=== PATIENT | male | born 1985 | race American Indian/Alaskan Native ===

== ENCOUNTER 2018-03-25 09:29 | Emergency (ER) | payer SELFPAY ==
[2018-03-25 09:41] VITALS: BP 121/74
[2018-03-25] MEDS ORDERED: IBUPROFEN PO ONE (10:53)
[2018-03-25] MEDS ORDERED: ZOVIRAX PO ONE (11:00)
--- NOTE | 2018-03-25 11:13 | Emergency Department Report ---
ED Male HPI - General Chief complaint: Skin/Abscess/Foreign Body Stated complaint: PAIN IN PRIVATE AREA Time Seen by Provider: 03/25/18 10:36 Source: patient Mode of arrival: Ambulatory Limitations: No Limitations - History of Present Illness Initial comments: This is a 32-year-old male who presents to ED complaining of painful, rash-like lesions to the perianal and scrotum region 2 days. Patient states that this retches very painful to touch and there between his buttocks and scrotum region. Patient states he also has painful masslike structure to his left inguinal cranial area. Patient describes pain as throbbing aching in nature that is c onstant. He denies fever assess tears/nausea vomiting/abdominal pain/dysuria/penile discharge or scrotal testicular pain or swelling -: Gradual Location: left inguinal region Severity: moderate Severity scale (0 -10): 8 Quality: aching, burning Consistency: constant Improves with: none Worsens with: movement rash - Related Data Sexually active: Yes Previous Rx's Medication Instructions Recorded Last Taken Type Acyclovir [Zovirax Tab] 800 mg PO TID #30 tablet 03/25/18 Unknown Rx Acyclovir [Zovirax] 1 applic TP TID #1 tube 03/25/18 Unknown Rx Ibuprofen [Motrin 800 MG tab] 800 mg PO TID #40 tablet 03/25/18 Unknown Rx Allergies Allergy/AdvReac Type Severity Reaction Status Date / Time No Known Allergies Allergy Unverified 03/25/18 09:37 ED Review of Systems ROS: Stated complaint: PAIN IN PRIVATE AREA Other details as noted in HPI Comment: All other systems reviewed and negative ED Past Medical Hx - Past Medical History Previous Medical History?: No - Surgical History Past Surgical History?: No - Social History Smoking Status: Current Every Day Smoker Substance Use Type: Marijuana - Medications Home Medications: Home Medications Medication Instructions Recorded Confirmed Last Taken Type Acyclovir [Zovirax Tab] 800 mg PO TID #30 tablet 03/25/18 Unknown Rx Acyclovir [Zovirax] 1 applic TP TID #1 tube 03/25/18 Unknown Rx Ibuprofen [Motrin 800 MG tab] 800 mg PO TID #40 tablet 03/25/18 Unknown Rx ED Physical Exam - General Limitations: No Limitations General appearance: alert, in no apparent distress - Head Head exam: Present: atraumatic, normocephalic - Eye Eye exam: Present: normal appearance - ENT ENT exam: Present: mucous membranes moist - Neck Neck exam: Present: normal inspection - Respiratory Respiratory exam: Present: normal lung sounds bilaterally. Absent: respiratory distress - Cardiovascular Cardiovascular Exam: Present: regular rate, normal rhythm. Absent: systolic murmur, diastolic murmur, rubs, gallop - GI/Abdominal GI/Abdominal exam: Present: soft, normal bowel sounds - Rectal Rectal exam: Present: deferred, tenderness, other (lesions, vesicular grouped,scattered) - exam: Present: circumcision. Absent: testicular tenderness, urethral discharge, scrotal swelling External exam: Present: erythema, lesions - Expanded Exam Expanded image: 1 - 2cm lymphadenopathy, tender to palpation - Extremities Exam Extremities exam: Present: normal inspection - Back Exam Back exam: Present: normal inspection - Neurological Exam Neurological exam: Present: alert, oriented X3 - Psychiatric Psychiatric exam: Present: normal affect, normal mood - Skin Skin exam: Present: warm, dry, intact, normal color. Absent: rash ED Course Vital Signs 03/25/18 09:37 Temperature 98.1 F Pulse Rate 98 H Respiratory 18 Rate Blood Pressure 121/74 O2 Sat by Pulse 99 Oximetry ED Medical Decision Making - Medical Decision Making 32-year-old male presents with a herpes simplex virus dermatitis is per email/perianal region. Discussed with patient at at bedtime he is not a curable virus but isn't treatable STD. Sign discussed with patient he will be treated with antiviral medication topically as well as with orally. Discuss no intercourse until symptoms resolve. Discuss vital importance to follow-up with [facility] medical clinic or family practitioner f for further STD testing Medicines are normal patient is in no acute distress. Critical care attestation.: If time is entered above; I have spent that time in minutes in the direct care of this critically ill patient, excluding procedure time. ED Disposition Clinical Impression: Herpes simplex virus (HSV) infection, Herpes genitalis in men Disposition: - TO HOME OR SELFCARE Is pt being admited?: No Does the pt Need Aspirin: No Condition: Stable Instructions: Genital Herpes Simplex (ED) Additional Instructions: Make sure to follow up with the primary care physician as discussed. Take all your medications as you've been prescribed. If you have any worsening symptoms or develop new symptoms please return to ED immediately. Prescriptions: Acyclovir [Zovirax Tab] 800 mg PO TID #30 tablet Acyclovir [Zovirax] 1 applic TP TID #1 tube Ibuprofen [Motrin 800 MG tab] 800 mg PO TID #40 tablet Referrals: PRIMARY CARE, [Primary Care Provider] - 3-5 Days [facility] [Outside] - 3-5 Days [facility] [Outside] - 3-5 Days Forms: Work/School Release Form(ED) Time of Disposition: 11:28
== END 2018-03-25 11:52 | disposition home or self-care (01) ==
LOC: ED 09:29
DX: B00.9 Herpesviral infection, unspecified (principal); F17.200 Nicotine dependence, unspecified, uncomplicated
CPT/HCPCS: 99282

== ENCOUNTER 2019-03-01 07:03 | Emergency (ER) | payer SELFPAY ==
[2019-03-01 07:41] VITALS: BP 117/69
--- NOTE | 2019-03-01 09:03 | Emergency Department Report ---
Chief Complaint: Dental/Oral Stated Complaint: TONGUE LESION Time Seen by Provider: 03/01/19 09:01 - HPI History of Present Illness: PT HAS BROKEN REAR MOLAR AND IT IS RUBBING ON HIS TONGUE CAUSING IRRITATIONS VSS NO FEVER TAKING PO NO TRISMUS NO LUDWIGS NO ABSCESS AMBULATORY AND NONTOXIC - Exam Vital Signs: Vital Signs 03/01/19 07:38 Temperature 98.5 F Pulse Rate 86 Respiratory 16 Rate Blood Pressure 117/69 O2 Sat by Pulse 99 Oximetry MSE screening note: Focused history and physical exam performed. Due to findings the following was ordered: ED Medical Decision Making - Medical Decision Making NO LIFE THREAT MSE TO DMD/PCP ED Disposition for MSE Clinical Impression: Stomatitis Disposition: MED SCREENING EXAM-LEFT Is pt being admited?: No Does the pt Need Aspirin: No Condition: Stable Additional Instructions: GO TO PHARMACY AND GET SOME DENTAL WAX PACK AROUND THAT SHARP TOOTH THEN GET SOME BLISTEX OR OTHER NUMBING OINTMENT AND PLACE ON TONGUE USE THESE FOR SEVERAL DAYS AND IT WILL GO AWAY FOLLOW UP WITH PCP GIVEN REFERRAL BELOW AND DENTIST AT [facility] AND THEY MAY BE ABLE TO EXTRACT THE TOOTH-THERE ARE OTHER DENTAL REFERRALS BELOW WELL Referrals: GALE DAILEY MD [Staff Physician] - 3-5 Days [facility] [Outside] - 3-5 Days [facility] [Outside] - 3-5 Days Time of Disposition: :02
== END 2019-03-01 09:05 | disposition left against medical advice (07) ==
LOC: ED 07:03
DX: K12.1 Other forms of stomatitis (principal)
CPT/HCPCS: 99281

== ENCOUNTER 2019-05-21 03:14 | Emergency (ER) | payer SELFPAY ==
[2019-05-21 03:21] VITALS: BP 113/66
[2019-05-21] MEDS ORDERED: ACETAMINOPHEN 500 MG TAB PO ONE (03:41)
[2019-05-21] MEDS ORDERED: IBUPROFEN 600 MG TAB PO ONE (03:41)
--- NOTE | 2019-05-21 04:06 | XRay Report ---
LEFT FOOT, 3 VIEWS INDICATION / CLINICAL INFORMATION: pain - injury. COMPARISON: None available. FINDINGS: Tiny calcaneal spur incidentally noted. No visible fracture or dislocation. IMPRESSION: No evidence for acute skeletal injury. Signer Name: Keesha Moore MD Signed: 05/21/2019 4:02 AM Workstation Name: [id number]
--- NOTE | 2019-05-21 04:07 | XRay Report ---
LEFT ANKLE, 3 VIEWS INDICATION / CLINICAL INFORMATION: Left foot pain and sweelling. COMPARISON: None available. FINDINGS: No fracture or dislocation. No soft tissue abnormality. IMPRESSION: Negative exam. Signer Name: Keesha Moore MD Signed: 05/21/2019 4:03 AM Workstation Name: [id number]
--- NOTE | 2019-05-21 04:27 | Emergency Department Report ---
ED Lower Extremity HPI - General Chief Complaint: Extremity Injury, Lower Stated Complaint: LT FOOT PAIN Source: patient Mode of arrival: Ambulatory Limitations: No Limitations - History of Present Illness Initial Comments: Patient is a 33-year-old -[place]cu[place] male with no past medical history who presents to the ED with complaint of acute onset persistent severe left foot and left ankle pain with mild swelling after a heavy plates accidentally slipped off his hand and dropped onto his left foot and ankle over 12 hours ago at work. Patient states that the pain was initially mild but subsequently the pain got worse as well as swelling. Patient states that the pain is worse with ambulation or active range of motion. Patient denies fall, dizziness, nausea, vomiting, numbness and tingling or weakness of left foot or left ankle. Low back pain or knee pain and heavy lifting. MD Complaint: ankle injury (left), foot injury (left) -: Sudden, hour(s) (12) Injury: Ankle: Left (pain and swelling), Foot: Left (pain and swelling) Type of Injury: blunt, other (heavy plate dropped onto hi sleft foot and ankle) Place: work Severity: severe Severity scale (0 -10): 7 Improves With: nothing Worsens With: weight bearing, movement, palpation Context: direct blow (heavy plates fell on his left foot and ankle) Associated Symptoms: swelling, able to partially bear weight. denies: numbness, tingling, unable to bear weight, ambulatory, other - Related Data Previous Rx's Medication Instructions Recorded Last Taken Type Acyclovir [Zovirax Tab] 800 mg PO TID #30 tablet 03/25/18 Unknown Rx Acyclovir [Zovirax] 1 applic TP TID #1 tube 03/25/18 Unknown Rx Ibuprofen [Motrin 800 MG tab] 800 mg PO TID #40 tablet 03/25/18 Unknown Rx Butalb/Acetamin/Caff 50-325-40 2 tab PO Q8HR PRN #30 tablet 10/13/18 Unknown Rx [Fioricet 50-325-40] Ondansetron [Zofran ODT TAB] 8 mg PO Q8HR #20 tab.rapdis 10/13/18 Unknown Rx Pantoprazole [Protonix] 40 mg PO QDAY #30 tablet 10/13/18 Unknown Rx Cyclobenzaprine [Flexeril] 10 mg PO Q8H PRN #21 tablet 03/07/20 Unknown Rx Naproxen 500 mg PO Q12H PRN #24 tablet 05/21/19 Unknown Rx Allergies Allergy/AdvReac Type Severity Reaction Status Date / Time No Known Allergies Allergy Unverified 03/25/18 09:37 ED Review of Systems ROS: Stated complaint: LT FOOT PAIN Other details as noted in HPI Constitutional: denies: chills, fever Eyes: denies: eye pain, eye discharge, vision change ENT: denies: ear pain, throat pain Respiratory: denies: cough, shortness of breath, wheezing Cardiovascular: denies: chest pain, palpitations Endocrine: no symptoms reported Gastrointestinal: denies: abdominal pain, nausea, diarrhea Genitourinary: denies: urgency, dysuria Musculoskeletal: joint swelling (left foot and ankle), arthralgia (left ankle and foot pain with mild swelling). denies: back pain Skin: denies: rash, lesions Neurological: denies: headache, weakness, paresthesias Psychiatric: denies: anxiety, depression Hematological/Lymphatic: denies: easy bleeding, easy bruising ED Past Medical Hx - Past Medical History Previous Medical History?: Yes Additional medical history: Cerebral aneurysm - Surgical History Past Surgical History?: No - Social History Smoking Status: Current Every Day Smoker Substance Use Type: Alcohol, Marijuana - Medications Home Medications: Home Medications Medication Instructions Recorded Confirmed Last Taken Type Acyclovir [Zovirax Tab] 800 mg PO TID #30 tablet 03/25/18 Unknown Rx Acyclovir [Zovirax] 1 applic TP TID #1 tube 03/25/18 Unknown Rx Ibuprofen [Motrin 800 MG tab] 800 mg PO TID #40 tablet 03/25/18 Unknown Rx Butalb/Acetamin/Caff 50-325-40 2 tab PO Q8HR PRN #30 tablet 10/13/18 Unknown Rx [Fioricet 50-325-40] Ondansetron [Zofran ODT TAB] 8 mg PO Q8HR #20 tab.rapdis 10/13/18 Unknown Rx Pantoprazole [Protonix] 40 mg PO QDAY #30 tablet 10/13/18 Unknown Rx Cyclobenzaprine [Flexeril] 10 mg PO Q8H PRN #21 tablet 05/21/19 Unknown Rx Naproxen 500 mg PO Q12H PRN #24 tablet 05/21/19 Unknown Rx ED Physical Exam - General Limitations: No Limitations General appearance: alert, in no apparent distress - Head Head exam: Present: atraumatic, normocephalic, normal inspection - Eye Eye exam: Present: normal appearance, PERRL, EOMI Pupils: Present: normal accommodation - ENT ENT exam: Present: normal exam, normal orophraynx, mucous membranes moist, TM's normal bilaterally, normal external ear exam - Neck Neck exam: Present: normal inspection, full ROM - Respiratory Respiratory exam: Present: normal lung sounds bilaterally. Absent: respiratory distress, wheezes, rhonchi, chest wall tenderness, accessory muscle use, decreased breath sounds - Cardiovascular Cardiovascular Exam: Present: regular rate, normal rhythm, normal heart sounds. Absent: systolic murmur, diastolic murmur, rubs, gallop - GI/Abdominal GI/Abdominal exam: Present: soft, normal bowel sounds. Absent: tenderness, guarding, hyperactive bowel sounds, organomegaly - Extremities Exam Extremities exam: Present: normal inspection, full ROM, tenderness (palpable left foot and ankle tenderness with mild swelling), normal capillary refill, joint swelling (left ankle and foot) - Back Exam Back exam: Present: normal inspection, full ROM. Absent: tenderness, CVA tenderness (R), muscle spasm, paraspinal tenderness - Neurological Exam Neurological exam: Present: alert, oriented X3, CN II-XII intact, normal gait, reflexes normal - Psychiatric Psychiatric exam: Present: normal affect, normal mood - Skin Skin exam: Present: warm, dry, intact, normal color. Absent: rash ED Course Vital Signs 05/21/19 03:19 Temperature 98.2 F Pulse Rate 97 H Respiratory 16 Rate Blood Pressure 113/66 O2 Sat by Pulse 95 Oximetry ED Lower Extremity MDM - Radiology Data Radiology results: report reviewed, image reviewed Left ankle and foot x-rays show no acute fractures or subluxations. - Medical Decision Making This is a 33-year-old male who presented to the ED with acute onset left foot and ankle pain with swelling after heavy metallic plates accidentally slipped of f his hands and dropped onto his left foot and ankle over 12 hours ago. In the ED, patient is alert and oriented x3 and is not in distress. Patient was treated for pain in the ED and left ankle and foot x-rays showed no acute fractures or subluxations. Left ankle and foot was splinted with Kalpesh wrap and postop shoe respectively. Patient was discharged home on pain medications and muscle relaxants and was advised to follow-up with his primary care physician in 5 to 7 days for reevaluation or return to the ED immediately if symptoms get worse. - Differential Diagnosis ankle injury; foot injury; sprained ankle; foot sprain Critical care attestation.: If time is entered above; I have spent that time in minutes in the direct care of this critically ill patient, excluding procedure time. ED Disposition Clinical Impression: Severe sprain of right ankle Qualifiers: Encounter type: initial encounter Qualified Code(s): S93.401A - Sprain of unspecified ligament of right ankle, initial encounter Sprain of right foot Qualifiers: Encounter type: initial encounter Qualified Code(s): S93.601A - Unspecified sprain of right foot, initial encounter Disposition: TO HOME OR SELFCARE Is pt being admited?: No Does the pt Need Aspirin: No Condition: Stable Instructions: Ankle Sprain (ED), Foot Contusion (ED), Muscle Strain (ED), Musculoskeletal Pain (ED) Additional Instructions: The x-rays of your left ankle and foot were negative with no fractures. Your injuries are soft tissue sprain. Therefore take pain medications and muscle relaxants with food and drink plenty fluids and follow-up with your primary care physician in 5 to 7 days for reevaluation. Return to the ED immediately if symptoms get worse. Prescriptions: Cyclobenzaprine [Flexeril] 10 mg PO Q8H PRN #21 tablet PRN Reason: Muscle Spasm Naproxen 500 mg PO Q12H PRN #24 tablet PRN Reason: Pain , Severe (7-10) Referrals: [facility] [Outside] - 3-5 Days Forms: Work/School Release Form(ED) Time of Disposition: 04:32 Print Language: SWEDISH
== END 2019-05-21 04:40 | disposition home or self-care (01) ==
LOC: ED 03:14
DX: S93.401A Sprain of unspecified ligament of right ankle, initial encounter (principal); S93.601A Unspecified sprain of right foot, initial encounter; F17.200 Nicotine dependence, unspecified, uncomplicated; F12.10 Cannabis abuse, uncomplicated; X58.XXXA Exposure to other specified factors, initial encounter; Y93.89 Activity, other specified; Y92.89 Other specified places as the place of occurrence of the external cause; Y99.8 Other external cause status

== ENCOUNTER 2020-07-25 12:02 | Emergency (ER) | payer OTHER ==
[2020-07-25 12:38] VITALS: BP 102/47
--- NOTE | 2020-07-25 12:57 | Event Note ---
ED Screening Note Date of service: 07/25/20 Time: 12:54 ED Screening Note: 34 y/o -Iraqi male presents to the emergency room reporting dysuria and hematuria times the last 3 to 4 days. Patient does admit to unprotected intercourse with 1 partner exclusively. Patient denies any fever chills no nausea no vomiting. He does state that he has some flank discomfort but he would not call it pain. He states that it does radiate to the front but does not feel that his pain is more like pressure. Patient states he does not have a primary care provider. He currently takes no medications on a daily basis has no known drug allergies and does not have a past medical history. This initial assessment/diagnostic orders/clinical plan/treatment(s) is/are subject to change based on patients health status, clinical progression and re- assessment by fellow clinical providers in the ED. Further treatment and workup at subsequent clinical providers discretion. Patient/guardian urged not to elope from the ED as their condition may be serious if not clinically assessed and managed. Initial orders include: Urinalysis has been sent
[2020-07-25 13:23] LABS: Bacteria,Urine 2+ /HPF (Negative); Bilirubin,Urine NEG (Negative); Blood,Urine MOD (Negative); Color,Urine Yellow (Yellow); Mucus,Urine FEW /HPF
[2020-07-25 13:26] LABS: WBC,Urine > 182.0 /HPF (0.0-6.0)
[2020-07-25 14:13] LABS: Hematocrit 38.7 % (35.5-45.6); Hemoglobin 12.6 gm/dl (11.8-15.2); Mean Corpuscular HGB Conc 33 % (32-34); Mean Corpuscular Volume 84 fl (84-94); Platelet Count 217 K/mm3 (140-440); Red Blood Count 4.61 M/mm3 (3.65-5.03); Red Cell Distribution Width 14.8 % (13.2-15.2)
[2020-07-25 14:33] LABS: BUN/Creatinine Ratio 12; Blood Urea Nitrogen 13 mg/dL (9-20); Calcium 8.9 mg/dL (8.4-10.2); Hemolysis Index 9
[2020-07-25] MEDS ORDERED: LIDOCAINE-MPF (1%) 10 MG/1 ML VIAL 5 ML INFILTRATI ONE (14:42)
--- NOTE | 2020-07-25 14:43 | Emergency Department Report ---
ED Male HPI - General Chief complaint: Urogenital-Male Stated complaint: BLOOD IN URINE Source: patient Mode of arrival: Ambulatory Limitations: No Limitations - History of Present Illness Initial comments: 34 y/o -[place] male presents to the emergency room reporting dysuria and hematuria times the last 3 to 4 days. Patient does admit to unprotected intercourse with 1 partner exclusively. Patient denies any fever chills no nausea no vomiting. He does state that he has some flank discomfort but he would not call it pain. He states that it does radiate to the front but does not feel that his pain is more like pressure. Patient states he does not have a primary care provider. He currently takes no medications on a daily basis has no known drug allergies and does not have a past medical history. MD Complaint: other (Hematuria) Onset/Timin -: days(s) Severity: mild Severity scale (0 -10): 3 Improves with: none Worsens with: urination blood in urine. denies: discharge, swelling, mass, fever - Related Data Sexually active: Yes (Unprotected 1 partner) Previous Rx's Medication Instructions Recorded Last Taken Type Acyclovir [Zovirax Tab] 800 mg PO TID #30 tablet 03/25/18 Unknown Rx Acyclovir [Zovirax] 1 applic TP TID #1 tube 03/25/18 Unknown Rx Ibuprofen [Motrin 800 MG tab] 800 mg PO TID #40 tablet 03/25/18 Unknown Rx Butalb/Acetamin/Caff 50-325-40 2 tab PO Q8HR PRN #30 tablet 10/13/18 Unknown Rx [Fioricet 50-325-40] Ondansetron [Zofran ODT TAB] 8 mg PO Q8HR #20 tab.rapdis 10/13/18 Unknown Rx Pantoprazole [Protonix] 40 mg PO QDAY #30 tablet 10/13/18 Unknown Rx Cyclobenzaprine [Flexeril] 10 mg PO Q8H PRN #21 tablet 05/21/19 Unknown Rx Naproxen 500 mg PO Q12H PRN #24 tablet 05/21/19 Unknown Rx Doxycycline Hyclate [Doxycycline 100 mg PO Q12HR 10 Days #20 tab 07/25/20 Unknown Rx Hyclate TAB] Allergies Allergy/AdvReac Type Severity Reaction Status Date / Time No Known Allergies Allergy Unverified 03/25/18 09:37 ED Review of Systems ROS: Stated complaint: BLOOD IN URINE Other details as noted in HPI Comment: All other systems reviewed and negative ED Past Medical Hx - Past Medical History Previous Medical History?: No Additional medical history: Cerebral aneurysm - Surgical History Past Surgical History?: No - Social History Smoking Status: Current Every Day Smoker Substance Use Type: Alcohol, Marijuana - Medications Home Medications: Home Medications Medication Instructions Recorded Confirmed Last Taken Type Acyclovir [Zovirax Tab] 800 mg PO TID #30 tablet 03/25/18 Unknown Rx Acyclovir [Zovirax] 1 applic TP TID #1 tube 03/25/18 Unknown Rx Ibuprofen [Motrin 800 MG tab] 800 mg PO TID #40 tablet 03/25/18 Unknown Rx Butalb/Acetamin/Caff 50-325-40 2 tab PO Q8HR PRN #30 tablet 10/13/18 Unknown Rx [Fioricet 50-325-40] Ondansetron [Zofran ODT TAB] 8 mg PO Q8HR #20 tab.rapdis 10/13/18 Unknown Rx Pantoprazole [Protonix] 40 mg PO QDAY #30 tablet 10/13/18 Unknown Rx Cyclobenzaprine [Flexeril] 10 mg PO Q8H PRN #21 tablet 05/21/19 Unknown Rx Naproxen 500 mg PO Q12H PRN #24 tablet 05/21/19 Unknown Rx Doxycycline Hyclate [Doxycycline 100 mg PO Q12HR 10 Days #20 tab 07/25/20 Unknown Rx Hyclate TAB] ED Physical Exam - General Limitations: No Limitations General appearance: alert, in no apparent distress - Head Head exam: Present: atraumatic, normocephalic - Eye Eye exam: Present: normal appearance - ENT ENT exam: Present: normal exam, normal external ear exam - Neck Neck exam: Present: normal inspection, full ROM - Respiratory Respiratory exam: Absent: accessory muscle use - Cardiovascular Cardiovascular Exam: Present: regular rate - GI/Abdominal GI/Abdominal exam: Present: soft. Absent: distended, tenderness - Extremities Exam Extremities exam: Present: normal inspection, full ROM - Back Exam Back exam: Present: normal inspection, full ROM - Neurological Exam Neurological exam: Present: alert, oriented X3, normal gait - Psychiatric Psychiatric exam: Present: normal affect, normal mood - Skin Skin exam: Present: warm, dry, intact, normal color. Absent: rash ED Course Vital Signs 07/25/20 12:36 Temperature 98.5 F Pulse Rate 75 Respiratory 17 Rate Blood Pressure 102/47 [Right] O2 Sat by Pulse 98 Oximetry ED Medical Decision Making - Lab Data Result diagrams: 07/25/20 13:48 07/25/20 13:48 Laboratory Tests 07/25/20 07/25/20 07/25/20 13:48 13:48 Unknown WBC 6.1 RBC 4.61 Hgb 12.6 Hct 38.7 MCV 84 MCH 27 L MCHC 33 RDW 14.8 Plt Count 217 Sodium 138 Potassium 4.5 Chloride 103.8 Carbon Dioxide 26 Anion Gap 13 BUN 13 Creatinine 1.1 Estimated GFR > 60 BUN/Creatinine Ratio 12 Glucose 90 Calcium 8.9 Urine Color Yellow Urine Turbidity Cloudy Urine pH 6.0 Ur Specific [place] 1.019 Urine Protein 100 mg/dl Urine Glucose (UA) Neg Urine Ketones Neg Urine Blood Mod Urine Nitrite Neg Urine Bilirubin Neg Urine Urobilinogen 2.0 Ur Leukocyte Esterase Lg Urine WBC (Auto) > 182.0 H Urine RBC (Auto) 87.0 Urine Bacteria (Auto) 2+ Urine Mucus Few - Medical Decision Making 34 y/o -[place] male presents to the emergency room reporting dysuria and hematuria times the last 3 to 4 days. Patient does admit to unprotected intercourse with 1 partner exclusively. Patient denies any fever chills no nausea no vomiting. He does state that he has some flank discomfort but he would not call it pain. He states that it does radiate to the front but does not feel that his pain is more like pressure. Patient states he does not have a primary care provider. He currently takes no medications on a daily basis has no known drug allergies and does not have a past medical history. Urinalysis shows greater than 182 WBCs and moderate amount of blood. Patient be treated for gonorrhea sent home on doxycycline and a referral to urologist. Critical care attestation.: If time is entered above; I have spent that time in minutes in the direct care of this critically ill patient, excluding procedure time. ED Disposition Clinical Impression: Hematuria, UTI (urinary tract infection), Concern about STD in male without diagnosis Disposition: DC-01 TO HOME OR SELFCARE Is pt being admited?: No Does the pt Need Aspirin: No Condition: Stable Instructions: Urinary Tract Infection, Adult, [id number], Safe Sex, Hematuria , Adult Additional Instructions: Urinalysis shows that you have a urinary tract infection or STD. I am covering you with antibiotics for both. I recommend being evaluated with a full STD evaluation and this can be done at a primary care provider or placed in Critical access hospital. I request that you refrain from intercourse until you and your partner is checked and treated. Prescriptions: Doxycycline Hyclate [Doxycycline Hyclate TAB] 100 mg PO Q12HR 10 Days #20 tab Referrals: VANESSA MASSEY MD [Staff Physician] - 3-5 Days Forms: Work/School Release Form(ED)
== END 2020-07-25 16:20 | disposition home or self-care (01) ==
LOC: ED 12:02
DX: N39.0 Urinary tract infection, site not specified (principal); R31.9 Hematuria, unspecified; Z20.2 Contact with and (suspected) exposure to infections with a predominantly sexual mode of transmission; F17.200 Nicotine dependence, unspecified, uncomplicated; Z79.899 Other long term (current) drug therapy; F12.10 Cannabis abuse, uncomplicated
CPT/HCPCS: 36415; 80048; 81001; 85027; 96372; 99283; J0696

== ENCOUNTER 2020-10-21 02:07 | Emergency (ER) | payer OTHER ==
[2020-10-21 02:36] VITALS: BP 109/74
[2020-10-21] MEDS ORDERED: ONDANSETRON 4 MG ODT TAB PO ONE ×2 (03:12→06:45)
[2020-10-21] MEDS ORDERED: LIDOCAINE (1%) 10 MG/1 ML VIAL 20 ML MDV INFILTRATI ONE (03:12)
[2020-10-21] MEDS ORDERED: IBUPROFEN 600 MG TAB PO ONE (03:12)
[2020-10-21] MEDS ORDERED: CLINDAMYCIN 300 MG CAP PO ONE (03:12)
[2020-10-21] MEDS ORDERED: SULFAMETHOXAZOLE/TRIMETHOPRIM 800/160MG DS TAB PO ONE (03:12)
[2020-10-21] MEDS ORDERED: oxyCODONE /ACETAMINOPHEN 5-325MG TAB PO ONE (03:13)
--- NOTE | 2020-10-21 04:56 | Emergency Department Report ---
ED General Adult HPI - General Chief complaint: Skin/Abscess/Foreign Body Stated complaint: BUT UNDER ARMPIT AND BUTT,POSS STD Source: patient Mode of arrival: Ambulatory Limitations: No Limitations - History of Present Illness Initial comments: Patient is a 34-year-old -[place] male with a history of cerebral aneurysm who presents to the ED with complaint of acute onset persistent severe painful swollen erythematous maculopapular rash on left axilla for the last 1 week. Patient states that he first noticed similar rashes on his buttocks about 3 weeks ago and which have since healed but that the current symptoms started 1 week ago and has been worsening. Patient states that he is unable to perform any active range of motion with the left arm because of worsening pain. Patient denies fever, chills, nausea, vomiting, dizziness, syncope, traumatic injury, numbness and tingling or weakness of left arm, change in vision, neck pain, chest pain or shortness of breath. MD Complaint: Left axilla painful swollen erythematous maculopapular rash -: Sudden, week(s) (1) Location: upper extremity (Left axilla) Radiation: non-radiation Severity scale (0 -10): 10 Quality: aching, sharp Consistency: constant Improves with: none Worsens with: movement Associated Symptoms: denies other symptoms, malaise, rash (Swollen erythematous painful maculopapular rash on left axilla). denies: confusion, chest pain, cough, diaphoresis, fever/chills, headaches, loss of appetite, nausea/vomiting, seizure, shortness of breath, syncope, weakness Treatments Prior to Arrival: none - Related Data Previous Rx's Medication Instructions Recorded Last Taken Type Acyclovir [Zovirax Tab] 800 mg PO TID #30 tablet 03/25/18 Unknown Rx Acyclovir [Zovirax] 1 applic TP TID #1 tube 03/25/18 Unknown Rx Ibuprofen [Motrin 800 MG tab] 800 mg PO TID #40 tablet 03/25/18 Unknown Rx Butalb/Acetamin/Caff 50-325-40 2 tab PO Q8HR PRN #30 tablet 10/13/18 Unknown Rx [Fioricet 50-325-40] Ondansetron [Zofran ODT TAB] 8 mg PO Q8HR #20 tab.rapdis 10/13/18 Unknown Rx Pantoprazole [Protonix] 40 mg PO QDAY #30 tablet 10/13/18 Unknown Rx Cyclobenzaprine [Flexeril] 10 mg PO Q8H PRN #21 tablet 05/21/19 Unknown Rx Naproxen 500 mg PO Q12H PRN #24 tablet 05/21/19 Unknown Rx Doxycycline Hyclate [Doxycycline 100 mg PO Q12HR 10 Days #20 tab 07/25/20 Unknown Rx Hyclate TAB] Acetaminophen/Codeine [Tylenol 1 tab PO Q6H PRN #12 tab 10/21/20 Unknown Rx /Codeine # 3 tab] Clindamycin [Clindamycin CAP] 300 mg PO Q8HR #60 capsule 10/21/20 Unknown Rx Ibuprofen [Motrin] 600 mg PO Q8H PRN #30 tablet 10/21/20 Unknown Rx Sulfamethoxazole/Trimethoprim 1 each PO Q12H #20 tablet 10/21/20 Unknown Rx [Bactrim DS TAB] Allergies Allergy/AdvReac Type Severity Reaction Status Date / Time No Known Allergies Allergy Unverified 03/25/18 09:37 ED Review of Systems ROS: Stated complaint: BUT UNDER ARMPIT AND BUTT,POSS STD Other details as noted in HPI Constitutional: denies: chills, fever Eyes: denies: eye pain, eye discharge, vision change ENT: denies: ear pain, throat pain Respiratory: denies: cough, shortness of breath, wheezing Cardiovascular: denies: chest pain, palpitations Endocrine: no symptoms reported Gastrointestinal: denies: abdominal pain, nausea, diarrhea Genitourinary: denies: urgency, dysuria Musculoskeletal: arthralgia (Left axilla pain due to erythematous maculopapular rash). denies: back pain, joint swelling Skin: rash (Painful swollen erythematous maculopapular rash on left axilla). denies: lesions Neurological: denies: headache, weakness, paresthesias Psychiatric: denies: anxiety, depression Hematological/Lymphatic: denies: easy bleeding, easy bruising ED Past Medical Hx - Past Medical History Previous Medical History?: Yes Additional medical history: Cerebral aneurysm - Surgical History Past Surgical History?: No - Social History Smoking Status: Never Smoker Substance Use Type: None - Medications Home Medications: Home Medications Medication Instructions Recorded Confirmed Last Taken Type Acyclovir [Zovirax Tab] 800 mg PO TID #30 tablet 03/25/18 Unknown Rx Acyclovir [Zovirax] 1 applic TP TID #1 tube 03/25/18 Unknown Rx Ibuprofen [Motrin 800 MG tab] 800 mg PO TID #40 tablet 03/25/18 Unknown Rx Butalb/Acetamin/Caff 50-325-40 2 tab PO Q8HR PRN #30 tablet 10/13/18 Unknown Rx [Fioricet 50-325-40] Ondansetron [Zofran ODT TAB] 8 mg PO Q8HR #20 tab.rapdis 10/13/18 Unknown Rx Pantoprazole [Protonix] 40 mg PO QDAY #30 tablet 10/13/18 Unknown Rx Cyclobenzaprine [Flexeril] 10 mg PO Q8H PRN #21 tablet 05/21/19 Unknown Rx Naproxen 500 mg PO Q12H PRN #24 tablet 05/21/19 Unknown Rx Doxycycline Hyclate [Doxycycline 100 mg PO Q12HR 10 Days #20 tab 07/25/20 Unknown Rx Hyclate TAB] Acetaminophen/Codeine [Tylenol 1 tab PO Q6H PRN #12 tab 10/21/20 Unknown Rx /Codeine # 3 tab] Clindamycin [Clindamycin CAP] 300 mg PO Q8HR #60 capsule 10/21/20 Unknown Rx Ibuprofen [Motrin] 600 mg PO Q8H PRN #30 tablet 10/21/20 Unknown Rx Sulfamethoxazole/Trimethoprim 1 each PO Q12H #20 tablet 10/21/20 Unknown Rx [Bactrim DS TAB] ED Physical Exam - General Limitations: No Limitations General appearance: alert, in no apparent distress - Head Head exam: Present: atraumatic, normocephalic, normal inspection - Eye Eye exam: Present: normal appearance, PERRL, EOMI Pupils: Present: normal accommodation - ENT ENT exam: Present: normal exam, normal orophraynx, mucous membranes moist, TM's normal bilaterally, normal external ear exam - Neck Neck exam: Present: normal inspection, full ROM - Respiratory Respiratory exam: Present: normal lung sounds bilaterally. Absent: respiratory distress, wheezes, rales, stridor, chest wall tenderness, accessory muscle use, decreased breath sounds - Cardiovascular Cardiovascular Exam: Present: regular rate, normal rhythm, normal heart sounds. Absent: systolic murmur, diastolic murmur, rubs, gallop - GI/Abdominal GI/Abdominal exam: Present: soft, normal bowel sounds. Absent: distended, tenderness, guarding, hyperactive bowel sounds, hypoactive bowel sounds, organomegaly - Extremities Exam Extremities exam: Present: normal inspection, full ROM, tenderness, normal capillary refill, other (Palpable severe left axilla tenderness due to erythematous maculopapular fluctuant rash) - Back Exam Back exam: Present: normal inspection, full ROM. Absent: tenderness, CVA tenderness (R), muscle spasm, paraspinal tenderness, vertebral tenderness - Neurological Exam Neurological exam: Present: alert, oriented X3, CN II-XII intact, normal gait, reflexes normal - Psychiatric Psychiatric exam: Present: normal affect, normal mood, anxious - Skin Skin exam: Present: warm, dry, intact, rash (Erythematous maculopapular mildly swollen fluctuant rash on left axilla), erythema ED Course Vital Signs 10/21/20 10/21/20 02:27 03:21 Temperature 99.3 F Pulse Rate 89 Respiratory 18 18 Rate Blood Pressure 109/74 O2 Sat by Pulse 100 Oximetry - I & D Left Arm Type of Procedure: Simple Site: Left axilla Blade Size: 11 I & D Procedure: betadine prep, sterile drapes applied, sterile dressing applied Progress: The area was cleaned with normal saline and Betadine solutions. Lidocaine 1% solution, a total of 5 cc was used for local anesthesia. When anesthesia was fully achieved, the wound was incised and drained and copious thick purulent discharge drained from the wound. The wound was then cleaned thoroughly with normal saline and loculations were broken with hemostat. The wounds was then packed with iodoform quarter inch gauzes. Patient tolerated the procedure well. The wound was then dressed appropriately with 4 x 4 gauzes and Tegaderm. Patient was thereafter discharged home on pain medications and antibiotics advised to return to the ED in 2 days for wound recheck and packing removal. ED Medical Decision Making - Medical Decision Making This is a 34-year-old -[place] male with a history of cerebral aneurysm who presents to the ED with complaint of acute onset persistent severe painful swollen erythematous maculopapular rash on left axilla for the last 1 week. Patient states that he first noticed similar rashes on his buttocks about 3 weeks ago and which have since healed but that the current symptoms started 1 week ago and has been worsening. Patient states that he is unable to perform any active range of motion with the left arm because of worsening pain. In the ED, patient is alert and oriented x3 and is not in any distress but is hemodynamically stable. Patient was treated for pain in the ED and also given initial oral antibiotics. The left axilla abscess was incised and drained per protocol after the area was cleaned with normal saline and Betadine, and application of loss of local anesthetic lidocaine 1% solution. Patient tolerated the procedure well. The wound was then cleaned and debrided extensively and packed with iodoform quarter inch gauze. The wound was then dressed appropriately and the patient was discharged home on pain medications and antibiotics and advised to return to the ED in 2 days for wound recheck or packing removal. Patient is advised to return to the ED immediately if symptoms get worse, otherwise follow-up with his primary care physician in 7 to 10 days for reevaluation. - Differential Diagnosis Cellulitis; cutaneous abscess; acute folliculitis; hidradenitis suppurativa Critical care attestation.: If time is entered above; I have spent that time in minutes in the direct care of this critically ill patient, excluding procedure time. ED Disposition Clinical Impression: Cellulitis of left axilla, Cutaneous abscess of left axilla, Acute folliculitis Disposition: DC-01 TO HOME OR SELFCARE Is pt being admited?: No Does the pt Need Aspirin: No Condition: Stable Instructions: Skin Abscess, [id number], Cellulitis, Adult, [id number], Incision and Drainage, Care After, Folliculitis Additional Instructions: Take medication with food, drink plenty of fluids and follow-up with your primary care physician in 7 to 10 days for reevaluation. Return to the ED immediately if symptoms get worse, otherwise return to the ED in 2 days for wound recheck and packing removal. Prescriptions: Sulfamethoxazole/Trimethoprim [Bactrim DS TAB] 1 each PO Q12H #20 tablet Clindamycin [Clindamycin CAP] 300 mg PO Q8HR #60 capsule Ibuprofen [Motrin] 600 mg PO Q8H PRN #30 tablet PRN Reason: Pain Acetaminophen/Codeine [Tylenol /Codeine # 3 tab] 1 tab PO Q6H PRN #12 tab PRN Reason: Pain , Severe (7-10) Referrals: [facility] [Provider Group] - 7-10 days Time of Disposition: 04:57 Print Language: DJIBOUTIAN
[2020-10-21] MEDS ORDERED: HYDROcodone/ACETAMINOPHEN 5-325 MG TAB PO ONE (06:45)
== END 2020-10-21 06:55 | disposition home or self-care (01) ==
LOC: ED 02:07
DX: L02.412 Cutaneous abscess of left axilla (principal); L03.112 Cellulitis of left axilla; L73.9 Follicular disorder, unspecified; Z98.890 Other specified postprocedural states
CPT/HCPCS: 99282; Q0162

== ENCOUNTER 2020-10-23 02:23 | Emergency (ER) | payer OTHER ==
[2020-10-23 03:54] VITALS: BP 105/78
== END 2020-10-23 12:03 ==
LOC: ED 02:23
DX: N63.32 Unspecified lump in axillary tail of the left breast (principal); Z53.21 Procedure and treatment not carried out due to patient leaving prior to being seen by health care provider

== ENCOUNTER 2020-10-26 06:49 | Emergency (ER) | payer OTHER ==
[2020-10-26 07:23] VITALS: BP 131/77
--- NOTE | 2020-10-26 09:08 | Emergency Department Report ---
Abscess Boil HPI - HPI Chief Complaint: Skin/Abscess/Foreign Body Stated Complaint: PAIN IS GETTING WORSE Time Seen by Provider: 10/26/20 09:04 Duration: 2 Days Location: Other (left axilla) History: Yes Pain, Yes Purulent Drainage, No Fever, No Foreign Body, No Previous History, No Insect Bite HPI: Chief complaint: "It is getting worse.". HPI: This 35-year-old male with history of cerebral aneurysm who presents with abscesses under left armpit. He is currently taking clindamycin and Bactrim. He states that drainage is worse. He has a new abscess also. No previous history of abscesses. He denies fever. Home Medications: Previous Rx's Medication Instructions Recorded Last Taken Type Acyclovir [Zovirax Tab] 800 mg PO TID #30 tablet 03/25/18 Unknown Rx Acyclovir [Zovirax] 1 applic TP TID #1 tube 03/25/18 Unknown Rx Ibuprofen [Motrin 800 MG tab] 800 mg PO TID #40 tablet 03/25/18 Unknown Rx Butalb/Acetamin/Caff 50-325-40 2 tab PO Q8HR PRN #30 tablet 10/13/18 Unknown Rx [Fioricet 50-325-40] Ondansetron [Zofran ODT TAB] 8 mg PO Q8HR #20 tab.rapdis 10/13/18 Unknown Rx Pantoprazole [Protonix] 40 mg PO QDAY #30 tablet 10/13/18 Unknown Rx Cyclobenzaprine [Flexeril] 10 mg PO Q8H PRN #21 tablet 05/21/19 Unknown Rx Naproxen 500 mg PO Q12H PRN #24 tablet 05/21/19 Unknown Rx Doxycycline Hyclate [Doxycycline 100 mg PO Q12HR 10 Days #20 tab 07/25/20 Unknown Rx Hyclate TAB] Acetaminophen/Codeine [Tylenol 1 tab PO Q6H PRN #12 tab 10/21/20 Unknown Rx /Codeine # 3 tab] Clindamycin [Clindamycin CAP] 300 mg PO Q8HR #60 capsule 10/21/20 Unknown Rx Ibuprofen [Motrin] 600 mg PO Q8H PRN #30 tablet 10/21/20 Unknown Rx Sulfamethoxazole/Trimethoprim 1 each PO Q12H #20 tablet 10/21/20 Unknown Rx [Bactrim DS TAB] Allergies/Adverse Reactions: Allergies Allergy/AdvReac Type Severity Reaction Status Date / Time No Known Allergies Allergy Unverified 03/25/18 09:37 ED Review of Systems ROS: Stated complaint: PAIN IS GETTING WORSE Other details as noted in HPI Constitutional: denies: fever, malaise Respiratory: denies: cough, shortness of breath Cardiovascular: denies: chest pain Skin: rash, lesions ED Past Medical Hx - Past Medical History Previous Medical History?: Yes Additional medical history: Cerebral aneurysm - Surgical History Past Surgical History?: No - Social History Smoking Status: Never Smoker Substance Use Type: None - Medications Home Medications: Home Medications Medication Instructions Recorded Confirmed Last Taken Type Acyclovir [Zovirax Tab] 800 mg PO TID #30 tablet 03/25/18 Unknown Rx Acyclovir [Zovirax] 1 applic TP TID #1 tube 03/25/18 Unknown Rx Ibuprofen [Motrin 800 MG tab] 800 mg PO TID #40 tablet 03/25/18 Unknown Rx Butalb/Acetamin/Caff 50-325-40 2 tab PO Q8HR PRN #30 tablet 10/13/18 Unknown Rx [Fioricet 50-325-40] Ondansetron [Zofran ODT TAB] 8 mg PO Q8HR #20 tab.rapdis 10/13/18 Unknown Rx Pantoprazole [Protonix] 40 mg PO QDAY #30 tablet 10/13/18 Unknown Rx Cyclobenzaprine [Flexeril] 10 mg PO Q8H PRN #21 tablet 05/21/19 Unknown Rx Naproxen 500 mg PO Q12H PRN #24 tablet 05/21/19 Unknown Rx Doxycycline Hyclate [Doxycycline 100 mg PO Q12HR 10 Days #20 tab 07/25/20 Unknown Rx Hyclate TAB] Acetaminophen/Codeine [Tylenol 1 tab PO Q6H PRN #12 tab 10/21/20 Unknown Rx /Codeine # 3 tab] Clindamycin [Clindamycin CAP] 300 mg PO Q8HR #60 capsule 10/21/20 Unknown Rx Ibuprofen [Motrin] 600 mg PO Q8H PRN #30 tablet 10/21/20 Unknown Rx Sulfamethoxazole/Trimethoprim 1 each PO Q12H #20 tablet 10/21/20 Unknown Rx [Bactrim DS TAB] ED Abscess Boil Physical Exam - Exam General: Vital signs noted. No distress. Alert and acting appropriately. Exam: Yes Tenderness, Yes Fluctuance, Yes Normal Neurologic Exam, Yes Normal Circulation, No Surrounding Cellulites/Erythema Exam: 3 cystic fluctuant masses 2 cm in diameter left axilla 2 of the masses are open with serous purulent drainage. ED Course Vital Signs 10/26/20 07:21 Temperature 98.8 F Pulse Rate 81 Respiratory 18 Rate Blood Pressure 131/77 O2 Sat by Pulse 100 Oximetry Critical care attestation.: If time is entered above; I have spent that time in minutes in the direct care of this critically ill patient, excluding procedure time. ED Medical Decision Making - Medical Decision Making Left axilla abscesses: Hidradenitis suppurativa likely diagnosis. I encourage patient to continue clindamycin and Bactrim. No indication for incision and d rainage. I referred patient to rn staff internal medicine physician and surgeon. ED Disposition Clinical Impression: Cutaneous abscess of left axilla Disposition: HOME / SELF CARE / HOMELESS Is pt being admited?: No Does the pt Need Aspirin: No Condition: Stable Instructions: Skin Abscess, [id number] Referrals: GALE DAILEY MD [Staff Physician] - 3-5 Days ANNIE JUSTICE MD [Staff Physician] - 3-5 Days MEHRDAD CUI MD [Staff Physician] - 3-5 Days
== END 2020-10-26 09:54 | disposition home or self-care (01) ==
LOC: ED 06:49
DX: L02.412 Cutaneous abscess of left axilla (principal); I67.1 Cerebral aneurysm, nonruptured
CPT/HCPCS: 99281

== ENCOUNTER 2020-11-05 03:39 | Emergency (ER) | payer OTHER ==
[2020-11-05 04:06] VITALS: BP 123/87
--- NOTE | 2020-11-05 05:32 | Emergency Department Report ---
ED General Adult HPI - General Chief complaint: Wound/Laceration Stated complaint: FOLLOW UP ON BUMPS UNDER ARM FOUL SMELL Source: patient Mode of arrival: Ambulatory Limitations: No Limitations - History of Present Illness Initial comments: Patient is a 34-year-old -[place] male with a history of cerebral aneurysm and who is 2 weeks s/p I&D procedure for left axilla abscess who presents to the ED for wound recheck and packing removal. Patient states that he has been taking oral antibiotics that were previously given to him when he initially presented to the ED with swollen erythematous maculopapular rash in the left axilla. Patient states that one of the iodoform packing gauzes fell off but there is one that is still stuck inside the open wound. Patient denies fever, chills, nausea, vomiting, dizziness, syncope, traumatic injury, numbness and tingling or weakness of left arm, change in vision, neck pain, chest pain or shortness of breath. MD Complaint: left axilla abscess wound, packing removal -: Sudden, week(s) (2) Location: upper extremity (left axilla) Radiation: non-radiation Severity scale (0 -10): 4 Quality: aching, sharp Consistency: constant Improves with: none Worsens with: movement Associated Symptoms: denies other symptoms, rash (Mildly erythematous rash on left axilla with open abscess wounds with packing in place). denies: confusion, chest pain, cough, diaphoresis, fever/chills, headaches, loss of appetite, malaise, nausea/vomiting, seizure, shortness of breath, syncope, other Treatments Prior to Arrival: NSAID - Related Data Previous Rx's Medication Instructions Recorded Last Taken Type Acyclovir [Zovirax Tab] 800 mg PO TID #30 tablet 03/25/18 Unknown Rx Acyclovir [Zovirax] 1 applic TP TID #1 tube 03/25/18 Unknown Rx Ibuprofen [Motrin 800 MG tab] 800 mg PO TID #40 tablet 03/25/18 Unknown Rx Butalb/Acetamin/Caff 50-325-40 2 tab PO Q8HR PRN #30 tablet 10/13/18 Unknown Rx [Fioricet 50-325-40] Ondansetron [Zofran ODT TAB] 8 mg PO Q8HR #20 tab.rapdis 10/13/18 Unknown Rx Pantoprazole [Protonix] 40 mg PO QDAY #30 tablet 10/13/18 Unknown Rx Cyclobenzaprine [Flexeril] 10 mg PO Q8H PRN #21 tablet 05/21/19 Unknown Rx Naproxen 500 mg PO Q12H PRN #24 tablet 05/21/19 Unknown Rx Doxycycline Hyclate [Doxycycline 100 mg PO Q12HR 10 Days #20 tab 07/25/20 Unknown Rx Hyclate TAB] Acetaminophen/Codeine [Tylenol 1 tab PO Q6H PRN #12 tab 10/21/20 Unknown Rx /Codeine # 3 tab] Clindamycin [Clindamycin CAP] 300 mg PO Q8HR #60 capsule 10/21/20 Unknown Rx Ibuprofen [Motrin] 600 mg PO Q8H PRN #30 tablet 10/21/20 Unknown Rx Sulfamethoxazole/Trimethoprim 1 each PO Q12H #20 tablet 10/21/20 Unknown Rx [Bactrim DS TAB] Allergies Allergy/AdvReac Type Severity Reaction Status Date / Time No Known Allergies Allergy Unverified 03/25/18 09:37 ED Review of Systems ROS: Stated complaint: FOLLOW UP ON BUMPS UNDER ARM FOUL SMELL Other details as noted in HPI Constitutional: denies: chills, fever Eyes: denies: eye pain, eye discharge, vision change ENT: denies: ear pain, throat pain Respiratory: denies: cough, shortness of breath, wheezing Cardiovascular: denies: chest pain, palpitations Endocrine: no symptoms reported Gastrointestinal: denies: abdominal pain, nausea, diarrhea Genitourinary: denies: urgency, dysuria Musculoskeletal: denies: back pain, joint swelling, arthralgia Skin: other (open abscess wound with packing on left axilla). denies: rash, lesions Neurological: denies: headache, weakness, paresthesias Psychiatric: denies: anxiety, depression Hematological/Lymphatic: denies: easy bleeding, easy bruising ED Past Medical Hx - Past Medical History Previous Medical History?: Yes Additional medical history: Cerebral aneurysm - Surgical History Past Surgical History?: No - Social History Smoking Status: Never Smoker Substance Use Type: None - Medications Home Medications: Home Medications Medication Instructions Recorded Confirmed Last Taken Type Acyclovir [Zovirax Tab] 800 mg PO TID #30 tablet 03/25/18 Unknown Rx Acyclovir [Zovirax] 1 applic TP TID #1 tube 03/25/18 Unknown Rx Ibuprofen [Motrin 800 MG tab] 800 mg PO TID #40 tablet 03/25/18 Unknown Rx Butalb/Acetamin/Caff 50-325-40 2 tab PO Q8HR PRN #30 tablet 10/13/18 Unknown Rx [Fioricet 50-325-40] Ondansetron [Zofran ODT TAB] 8 mg PO Q8HR #20 tab.rapdis 10/13/18 Unknown Rx Pantoprazole [Protonix] 40 mg PO QDAY #30 tablet 10/13/18 Unknown Rx Cyclobenzaprine [Flexeril] 10 mg PO Q8H PRN #21 tablet 05/21/19 Unknown Rx Naproxen 500 mg PO Q12H PRN #24 tablet 05/21/19 Unknown Rx Doxycycline Hyclate [Doxycycline 100 mg PO Q12HR 10 Days #20 tab 07/25/20 Unknown Rx Hyclate TAB] Acetaminophen/Codeine [Tylenol 1 tab PO Q6H PRN #12 tab 10/21/20 Unknown Rx /Codeine # 3 tab] Clindamycin [Clindamycin CAP] 300 mg PO Q8HR #60 capsule 10/21/20 Unknown Rx Ibuprofen [Motrin] 600 mg PO Q8H PRN #30 tablet 10/21/20 Unknown Rx Sulfamethoxazole/Trimethoprim 1 each PO Q12H #20 tablet 10/21/20 Unknown Rx [Bactrim DS TAB] ED Physical Exam - General Limitations: No Limitations General appearance: alert, in no apparent distress - Head Head exam: Present: atraumatic, normocephalic, normal inspection - Eye Eye exam: Present: normal appearance, PERRL, EOMI Pupils: Present: normal accommodation - ENT ENT exam: Present: normal exam, normal orophraynx, mucous membranes moist, TM's normal bilaterally, normal external ear exam - Neck Neck exam: Present: normal inspection, full ROM - Respiratory Respiratory exam: Present: normal lung sounds bilaterally. Absent: respiratory distress, wheezes, rales, rhonchi, chest wall tenderness, accessory muscle use, decreased breath sounds - Cardiovascular Cardiovascular Exam: Present: regular rate, normal rhythm, normal heart sounds. Absent: systolic murmur, diastolic murmur, rubs, gallop - GI/Abdominal GI/Abdominal exam: Present: soft, normal bowel sounds. Absent: tenderness, guarding, hyperactive bowel sounds, hypoactive bowel sounds, organomegaly, mass - Extremities Exam Extremities exam: Present: normal inspection, full ROM, normal capillary refill. Absent: tenderness, pedal edema, joint swelling, calf tenderness - Back Exam Back exam: Present: normal inspection, full ROM. Absent: tenderness, CVA tenderness (R), CVA tenderness (L), muscle spasm, paraspinal tenderness, vertebral tenderness - Neurological Exam Neurological exam: Present: alert, oriented X3, CN II-XII intact, normal gait, reflexes normal - Psychiatric Psychiatric exam: Present: normal affect, normal mood - Skin Skin exam: Present: warm, dry, intact, normal color, rash (Painful open abscess wound with packing in place) ED Course Vital Signs 11/05/20 04:04 Temperature 98.8 F Pulse Rate 89 Respiratory 18 Rate Blood Pressure 123/87 O2 Sat by Pulse 100 Oximetry ED Medical Decision Making - Medical Decision Making This is a 34-year-old -[place] male with a history of cerebral aneurysm and who is 2 weeks s/p I&D procedure for left axilla abscess who presents to the ED for wound recheck and packing removal. Patient states that he has been taking oral antibiotics that were previously given to him when he initially presented to the ED with swollen erythematous maculopapular rash in the left axilla. Patient states that one of the iodoform packing gauzes fell off but there is one that is still stuck inside the open wound. In the ED, patient is alert and oriented x3 and is not in any distress. The wound was evaluated and the remaining iodoform gauze was removed successfully. Patient tolerated the procedure well. The wound was then dressed appropriately and the patient was discharged home and advised to continue taking the previously prescribed antibiotics and pain medications and to follow-up with his primary care physician in 7 to 10 days for reevaluation. Patient was otherwise advised return to the ED immediately if symptoms get worse. - Differential Diagnosis open wound; cellulitis; wound check Critical care attestation.: If time is entered above; I have spent that time in minutes in the direct care of this critically ill patient, excluding procedure time. ED Disposition Clinical Impression: Cellulitis of left axilla, Abscess packing removal Disposition: HOME / SELF CARE / HOMELESS Is pt being admited?: No Does the pt Need Aspirin: No Condition: Stable Instructions: Cellulitis, Adult, [id number], How to Change Your Wound Dressing, [id number] Additional Instructions: Continue taking the previously prescribed antibiotics until completion, take pain medication as needed with food, drink plenty of fluids and follow-up with your primary care physician in 7 to 10 days for reevaluation. Return to the ED immediately if symptoms get worse. Referrals: [facility] [Provider Group] - 7-10 days Time of Disposition: 05:15 Print Language: ISRAELI
== END 2020-11-05 05:51 | disposition home or self-care (01) ==
LOC: ED 03:39
DX: L03.112 Cellulitis of left axilla (principal); Z79.899 Other long term (current) drug therapy
CPT/HCPCS: 99282

== ENCOUNTER 2020-12-05 15:11 | Emergency (ER) | payer OTHER ==
[2020-12-05 15:44] VITALS: BP 116/72
--- NOTE | 2020-12-05 18:14 | Emergency Department Report ---
- General Chief complaint: Extremity Injury, Lower Stated complaint: KNEE SWELLING Time Seen by Provider: 12/05/20 17:19 Source: patient Mode of arrival: Ambulatory Limitations: No Limitations - History of Present Illness Initial comments: Patient is a 35-year-old male presents emergency room with complaints of an infection to the right knee. He states approximately 4 days ago he noticed a small pimple-like skin lesion just below the right knee. He states that he popped it with his hands and had a very small amount of drainage. He states that over the next couple of days he began noticing swelling, redness, increased pain. He states he has been ambulatory. He denies any numbness or weakness. He denies being bit by anything that he is aware of. He denies any fall or injury or any trauma. No past medical history. No allergies to medications. - Related Data Previous Rx's Medication Instructions Recorded Last Taken Type Acyclovir [Zovirax Tab] 800 mg PO TID #30 tablet 03/25/18 Unknown Rx Acyclovir [Zovirax] 1 applic TP TID #1 tube 03/25/18 Unknown Rx Ibuprofen [Motrin 800 MG tab] 800 mg PO TID #40 tablet 03/25/18 Unknown Rx Butalb/Acetamin/Caff 50-325-40 2 tab PO Q8HR PRN #30 tablet 10/13/18 Unknown Rx [Fioricet 50-325-40] Ondansetron [Zofran ODT TAB] 8 mg PO Q8HR #20 tab.rapdis 10/13/18 Unknown Rx Pantoprazole [Protonix] 40 mg PO QDAY #30 tablet 10/13/18 Unknown Rx Cyclobenzaprine [Flexeril] 10 mg PO Q8H PRN #21 tablet 05/21/19 Unknown Rx Naproxen 500 mg PO Q12H PRN #24 tablet 05/21/19 Unknown Rx Doxycycline Hyclate [Doxycycline 100 mg PO Q12HR 10 Days #20 tab 07/25/20 Unknown Rx Hyclate TAB] Acetaminophen/Codeine [Tylenol 1 tab PO Q6H PRN #12 tab 10/21/20 Unknown Rx /Codeine # 3 tab] Clindamycin [Clindamycin CAP] 300 mg PO Q8HR #60 capsule 10/21/20 Unknown Rx Ibuprofen [Motrin] 600 mg PO Q8H PRN #30 tablet 10/21/20 Unknown Rx Sulfamethoxazole/Trimethoprim 1 each PO Q12H #20 tablet 10/21/20 Unknown Rx [Bactrim DS TAB] Clindamycin [Clindamycin CAP] 450 mg PO TID 7 Days #63 capsule 12/05/20 Unknown Rx HYDROcodone/APAP 5-325 [[place] 1 each PO Q6HR PRN #12 tablet 12/05/20 Unknown Rx 5/325] Naproxen 375 mg PO BID PRN #14 tablet 12/05/20 Unknown Rx Allergies Allergy/AdvReac Type Severity Reaction Status Date / Time No Known Allergies Allergy Unverified 12/05/20 15:45 Abscess Boil HPI - HPI Chief Complaint: Extremity Injury, Lower Stated Complaint: KNEE SWELLING Time Seen by Provider: 12/05/20 17:19 Home Medications: Previous Rx's Medication Instructions Recorded Last Taken Type Acyclovir [Zovirax Tab] 800 mg PO TID #30 tablet 03/25/18 Unknown Rx Acyclovir [Zovirax] 1 applic TP TID #1 tube 03/25/18 Unknown Rx Ibuprofen [Motrin 800 MG tab] 800 mg PO TID #40 tablet 03/25/18 Unknown Rx Butalb/Acetamin/Caff 50-325-40 2 tab PO Q8HR PRN #30 tablet 10/13/18 Unknown Rx [Fioricet 50-325-40] Ondansetron [Zofran ODT TAB] 8 mg PO Q8HR #20 tab.rapdis 10/13/18 Unknown Rx Pantoprazole [Protonix] 40 mg PO QDAY #30 tablet 10/13/18 Unknown Rx Cyclobenzaprine [Flexeril] 10 mg PO Q8H PRN #21 tablet 05/21/19 Unknown Rx Naproxen 500 mg PO Q12H PRN #24 tablet 05/21/19 Unknown Rx Doxycycline Hyclate [Doxycycline 100 mg PO Q12HR 10 Days #20 tab 07/25/20 Unknown Rx Hyclate TAB] Acetaminophen/Codeine [Tylenol 1 tab PO Q6H PRN #12 tab 10/21/20 Unknown Rx /Codeine # 3 tab] Clindamycin [Clindamycin CAP] 300 mg PO Q8HR #60 capsule 10/21/20 Unknown Rx Ibuprofen [Motrin] 600 mg PO Q8H PRN #30 tablet 10/21/20 Unknown Rx Sulfamethoxazole/Trimethoprim 1 each PO Q12H #20 tablet 10/21/20 Unknown Rx [Bactrim DS TAB] Clindamycin [Clindamycin CAP] 450 mg PO TID 7 Days #63 capsule 12/05/20 Unknown Rx HYDROcodone/APAP 5-325 [[place] 1 each PO Q6HR PRN #12 tablet 12/05/20 Unknown Rx 5/325] Naproxen 375 mg PO BID PRN #14 tablet 12/05/20 Unknown Rx Allergies/Adverse Reactions: Allergies Allergy/AdvReac Type Severity Reaction Status Date / Time No Known Allergies Allergy Unverified 12/05/20 15:45 ED Review of Systems ROS: Stated complaint: KNEE SWELLING Other details as noted in HPI Comment: All other systems reviewed and negative ED Past Medical Hx - Past Medical History Additional medical history: Cerebral aneurysm - Social History Smoking Status: Never Smoker Substance Use Type: None - Medications Home Medications: Home Medications Medication Instructions Recorded Confirmed Last Taken Type Acyclovir [Zovirax Tab] 800 mg PO TID #30 tablet 03/25/18 Unknown Rx Acyclovir [Zovirax] 1 applic TP TID #1 tube 03/25/18 Unknown Rx Ibuprofen [Motrin 800 MG tab] 800 mg PO TID #40 tablet 03/25/18 Unknown Rx Butalb/Acetamin/Caff 50-325-40 2 tab PO Q8HR PRN #30 tablet 10/13/18 Unknown Rx [Fioricet 50-325-40] Ondansetron [Zofran ODT TAB] 8 mg PO Q8HR #20 tab.rapdis 10/13/18 Unknown Rx Pantoprazole [Protonix] 40 mg PO QDAY #30 tablet 10/13/18 Unknown Rx Cyclobenzaprine [Flexeril] 10 mg PO Q8H PRN #21 tablet 05/21/19 Unknown Rx Naproxen 500 mg PO Q12H PRN #24 tablet 05/21/19 Unknown Rx Doxycycline Hyclate [Doxycycline 100 mg PO Q12HR 10 Days #20 tab 07/25/20 Unknown Rx Hyclate TAB] Acetaminophen/Codeine [Tylenol 1 tab PO Q6H PRN #12 tab 10/21/20 Unknown Rx /Codeine # 3 tab] Clindamycin [Clindamycin CAP] 300 mg PO Q8HR #60 capsule 10/21/20 Unknown Rx Ibuprofen [Motrin] 600 mg PO Q8H PRN #30 tablet 10/21/20 Unknown Rx Sulfamethoxazole/Trimethoprim 1 each PO Q12H #20 tablet 10/21/20 Unknown Rx [Bactrim DS TAB] Clindamycin [Clindamycin CAP] 450 mg PO TID 7 Days #63 capsule 12/05/20 Unknown Rx HYDROcodone/APAP 5-325 [[place] 1 each PO Q6HR PRN #12 tablet 12/05/20 Unknown Rx 5/325] Naproxen 375 mg PO BID PRN #14 tablet 12/05/20 Unknown Rx ED Physical Exam - General Limitations: No Limitations General appearance: alert, in no apparent distress - Head Head exam: Present: atraumatic, normocephalic - Eye Eye exam: Present: normal appearance - ENT ENT exam: Present: mucous membranes moist - Neurological Exam Neurological exam: Present: alert, oriented X3 - Psychiatric Psychiatric exam: Present: normal affect, normal mood - Skin Skin exam: Present: warm, dry, other (2 cm area of induration present just inferior to the right knee, there is a 4 cm area of surrounding erythema, no ttp of the right knee, FROM of the RLE, neurovascularly intact, no crepitus, compartments are soft, no necrosis, no active drainage) ED Course Vital Signs 12/05/20 15:26 Temperature 98.2 F Pulse Rate 94 H Respiratory 18 Rate Blood Pressure 116/72 O2 Sat by Pulse 100 Oximetry ED Medical Decision Making - Medical Decision Making Patient is a 35-year-old male presents emergency room with complaints of an infection to the right knee. He states approximately 4 days ago he noticed a small pimple-like skin lesion just below the right knee. He states that he popped it with his hands and had a very small amount of drainage. He states that over the next couple of days he began noticing swelling, redness, increased pain. He states he has been ambulatory. He denies any numbness or weakness. He denies being bit by anything that he is aware of. He denies any fall or injury or any trauma. No past medical history. No allergies to medications. Vitals are normal. On exam: 2 cm area of induration present just inferior to the right knee, there is a 4 cm area of surrounding erythema, no ttp of the right knee, FROM of the RLE, neurovascularly intact, no crepitus, compartments are soft, no necrosis, no active drainage. Examination appears consistent with cellulitis, no drainable abscess at this time. There is no joint involvement at this time, no signs of septic joint. This appears consistent with a skin infection. Patient given prescription for medication. Discussed the importance of outpatient follow-up within the next 3 days. Discussed very strict return precautions in detail with patient. advised pt Please take medication as prescribed. Please do warm compresses 3 times a day. Follow-up with your primary care doctor in the next 3 days for reexamination. Return to emergency room immediately for any new or worsening symptoms including but not limited to worsening redness, worsening swelling, fever, vomiting, increased drainage, etc. Critical care attestation.: If time is entered above; I have spent that time in minutes in the direct care of this critically ill patient, excluding procedure time. ED Disposition Clinical Impression: Cellulitis Qualifiers: Site of cellulitis: extremity Site of cellulitis of extremity: lower extremity Laterality: right Qualified Code(s): L03.115 - Cellulitis of right lower limb Disposition: HOME / SELF CARE / HOMELESS Is pt being admited?: No Does the pt Need Aspirin: No Condition: Stable Instructions: Cellulitis, Adult Additional Instructions: Please take medication as prescribed. Please do warm compresses 3 times a day. Follow-up with your primary care doctor in the next 3 days for reexamination. Return to emergency room immediately for any new or worsening symptoms including but not limited to worsening redness, worsening swelling, fever, vomiting, increased drainage, etc. Prescriptions: Clindamycin [Clindamycin CAP] 450 mg PO TID 7 Days #63 capsule Naproxen 375 mg PO BID PRN #14 tablet PRN Reason: moderate pain HYDROcodone/APAP 5-325 [[place] 5/325] 1 each PO Q6HR PRN #12 tablet PRN Reason: Pain , Severe (7-10) Referrals: GALE DAILEY MD [Staff Physician] - 2-3 Days [facility] [Provider Group] - 2-3 Days AMERICA GANDHI MD [Staff Physician] - 2-3 Days Time of Disposition: 18:11 Print Language: YORUBA
== END 2020-12-05 18:57 | disposition home or self-care (01) ==
LOC: ED 15:11
DX: L03.115 Cellulitis of right lower limb (principal); I67.1 Cerebral aneurysm, nonruptured
CPT/HCPCS: 99282

== ENCOUNTER 2021-01-15 13:18 | Emergency (ER) | payer OTHER ==
[2021-01-15] MEDS ORDERED: ACETAMINOPHEN W/CODEINE 300-30 MG TAB PO ONE (14:46)
[2021-01-15] MEDS ORDERED: ACETAMINOPHEN 325 MG/10.15 ML ORAL LIQD UNIT DOSE PO ONE (14:46)
[2021-01-15] MEDS ORDERED: ONDANSETRON 4 MG ODT TAB PO ONE (14:46)
--- NOTE | 2021-01-15 15:27 | XRay Report ---
CHEST 2 VIEWS INDICATION / CLINICAL INFORMATION: cough, fever, v/d. COMPARISON: None available. FINDINGS: SUPPORT DEVICES: None. HEART / MEDIASTINUM: No significant abnormality. LUNGS / PLEURA: No significant pulmonary or pleural abnormality. No pneumothorax. ADDITIONAL FINDINGS: No significant additional findings. IMPRESSION: 1. No acute findings. Signer Name: Josie Looney MD Signed: 01/15/2021 3:22 PM Workstation Name: [id number]
[2021-01-15 15:35] LABS: Hematocrit 37.2 % (35.5-45.6); Mean Corpuscular HGB Conc 32 % (32-34); Mean Corpuscular Volume 80 fl (84-94); Platelet Count 199 K/mm3 (140-440); Red Blood Count 4.64 M/mm3 (3.65-5.03); Red Cell Distribution Width 17.4 % (13.2-15.2)
[2021-01-15 15:49] LABS: Alanine Aminotransferase 36 units/L (7-56); BUN/Creatinine Ratio 12; Blood Urea Nitrogen 13 mg/dL (9-20); Calcium 8.7 mg/dL (8.4-10.2); Hemolysis Index 6
[2021-01-15 16:14] LABS: Total Cells Counted 100
[2021-01-15 16:15] LABS: Hypochromasia 1+; Platelet Estimate Consistent w Auto
--- NOTE | 2021-01-15 16:47 | Emergency Department Report ---
- General Chief Complaint: Upper Respiratory Infection Stated Complaint: COVID? FEVER VOMITING,BODY ACHES CHILLS Time Seen by Provider: 01/15/21 14:32 Source: patient Mode of arrival: Ambulatory Limitations: No Limitations - History of Present Illness Initial Comments: Patient is a 35-year-old male presents emergency room complaints of possible COVID-19 that began 3 days ago. He states he was looking up his symptoms and he reports that he has all associated symptoms. He states he has been having nausea, vomiting, diarrhea, mild dry cough, chills, body aches, fever. He faustino es any shortness of breath, chest pain, urinary symptoms, hematochezia, melena, hematemesis. He denies any past medical history. No allergies to medications. He has not been vaccinated for COVID-19. He denies any known sick contacts or recent travel. - Related Data Previous Rx's Medication Instructions Recorded Last Taken Type Acyclovir [Zovirax Tab] 800 mg PO TID #30 tablet 03/25/18 Unknown Rx Acyclovir [Zovirax] 1 applic TP TID #1 tube 03/25/18 Unknown Rx Ibuprofen [Motrin 800 MG tab] 800 mg PO TID #40 tablet 03/25/18 Unknown Rx Butalb/Acetamin/Caff 50-325-40 2 tab PO Q8HR PRN #30 tablet 10/13/18 Unknown Rx [Fioricet 50-325-40] Ondansetron [Zofran ODT TAB] 8 mg PO Q8HR #20 tab.rapdis 10/13/18 Unknown Rx Pantoprazole [Protonix] 40 mg PO QDAY #30 tablet 10/13/18 Unknown Rx Cyclobenzaprine [Flexeril] 10 mg PO Q8H PRN #21 tablet 05/21/19 Unknown Rx Naproxen 500 mg PO Q12H PRN #24 tablet 05/21/19 Unknown Rx Doxycycline Hyclate [Doxycycline 100 mg PO Q12HR 10 Days #20 tab 07/25/20 Unknown Rx Hyclate TAB] Acetaminophen/Codeine [Tylenol 1 tab PO Q6H PRN #12 tab 10/21/20 Unknown Rx /Codeine # 3 tab] Clindamycin [Clindamycin CAP] 300 mg PO Q8HR #60 capsule 10/21/20 Unknown Rx Ibuprofen [Motrin] 600 mg PO Q8H PRN #30 tablet 10/21/20 Unknown Rx Sulfamethoxazole/Trimethoprim 1 each PO Q12H #20 tablet 10/21/20 Unknown Rx [Bactrim DS TAB] Clindamycin [Clindamycin CAP] 450 mg PO TID 7 Days #63 capsule 12/05/20 Unknown Rx HYDROcodone/APAP 5-325 [[place] 1 each PO Q6HR PRN #12 tablet 12/05/20 Unknown Rx 5/325] Naproxen 375 mg PO BID PRN #14 tablet 12/05/20 Unknown Rx Acetaminophen [Tylenol] 650 mg PO Q8HR PRN #20 capsule 01/15/21 Unknown Rx Benzonatate [Tessalon Perles] 100 mg PO Q8HR PRN #12 capsule 01/15/21 Unknown Rx Hyoscyamine Subl [Levsin Sl 0.125 0.125 mg SL Q6HR PRN #8 tab 01/15/21 Unknown Rx TAB] Ondansetron [Zofran Odt] 4 mg PO Q8HR PRN #8 tab.rapdis 01/15/21 Unknown Rx guaiFENesin ER [Mucinex ER] 600 mg PO Q12H 7 Days #14 tablet.er 01/15/21 Unknown Rx Allergies Allergy/AdvReac Type Severity Reaction Status Date / Time No Known Allergies Allergy Verified 01/15/21 13:58 ED Review of Systems ROS: Stated complaint: COVID? FEVER VOMITING,BODY ACHES CHILLS Other details as noted in HPI Comment: All other systems reviewed and negative ED Past Medical Hx - Past Medical History Additional medical history: Cerebral aneurysm - Social History Smoking Status: Never Smoker Substance Use Type: None - Medications Home Medications: Home Medications Medication Instructions Recorded Confirmed Last Taken Type Acyclovir [Zovirax Tab] 800 mg PO TID #30 tablet 03/25/18 Unknown Rx Acyclovir [Zovirax] 1 applic TP TID #1 tube 03/25/18 Unknown Rx Ibuprofen [Motrin 800 MG tab] 800 mg PO TID #40 tablet 03/25/18 Unknown Rx Butalb/Acetamin/Caff 50-325-40 2 tab PO Q8HR PRN #30 tablet 10/13/18 Unknown Rx [Fioricet 50-325-40] Ondansetron [Zofran ODT TAB] 8 mg PO Q8HR #20 tab.rapdis 10/13/18 Unknown Rx Pantoprazole [Protonix] 40 mg PO QDAY #30 tablet 10/13/18 Unknown Rx Cyclobenzaprine [Flexeril] 10 mg PO Q8H PRN #21 tablet 05/21/19 Unknown Rx Naproxen 500 mg PO Q12H PRN #24 tablet 05/21/19 Unknown Rx Doxycycline Hyclate [Doxycycline 100 mg PO Q12HR 10 Days #20 tab 07/25/20 Unknown Rx Hyclate TAB] Acetaminophen/Codeine [Tylenol 1 tab PO Q6H PRN #12 tab 10/21/20 Unknown Rx /Codeine # 3 tab] Clindamycin [Clindamycin CAP] 300 mg PO Q8HR #60 capsule 10/21/20 Unknown Rx Ibuprofen [Motrin] 600 mg PO Q8H PRN #30 tablet 10/21/20 Unknown Rx Sulfamethoxazole/Trimethoprim 1 each PO Q12H #20 tablet 10/21/20 Unknown Rx [Bactrim DS TAB] Clindamycin [Clindamycin CAP] 450 mg PO TID 7 Days #63 capsule 12/05/20 Unknown Rx HYDROcodone/APAP 5-325 [[place] 1 each PO Q6HR PRN #12 tablet 12/05/20 Unknown Rx 5/325] Naproxen 375 mg PO BID PRN #14 tablet 12/05/20 Unknown Rx Acetaminophen [Tylenol] 650 mg PO Q8HR PRN #20 capsule 01/15/21 Unknown Rx Benzonatate [Tessalon Perles] 100 mg PO Q8HR PRN #12 capsule 01/15/21 Unknown Rx Hyoscyamine Subl [Levsin Sl 0.125 0.125 mg SL Q6HR PRN #8 tab 01/15/21 Unknown Rx TAB] Ondansetron [Zofran Odt] 4 mg PO Q8HR PRN #8 tab.rapdis 01/15/21 Unknown Rx guaiFENesin ER [Mucinex ER] 600 mg PO Q12H 7 Days #14 tablet.er 01/15/21 Unknown Rx ED Physical Exam - General Limitations: No Limitations General appearance: alert, in no apparent distress - Head Head exam: Present: atraumatic, normocephalic - Eye Eye exam: Present: normal appearance - ENT ENT exam: Present: mucous membranes moist - Respiratory Respiratory exam: Present: normal lung sounds bilaterally. Absent: respiratory distress, wheezes, rales, rhonchi, stridor, chest wall tenderness, accessory muscle use, decreased breath sounds, prolonged expiratory - Cardiovascular Cardiovascular Exam: Present: regular rate, normal rhythm, normal heart sounds. Absent: systolic murmur, diastolic murmur, rubs, gallop - GI/Abdominal GI/Abdominal exam: Present: soft. Absent: distended, tenderness, guarding, rebound, rigid - Neurological Exam Neurological exam: Present: alert, oriented X3 - Psychiatric Psychiatric exam: Present: normal affect, normal mood - Skin Skin exam: Present: warm, dry, intact ED Course Vital Signs 01/15/21 01/15/21 13:56 17:45 Temperature 100.9 F H 99.5 F Pulse Rate 100 H 73 Respiratory 14 14 Rate Blood Pressure 100/61 111/63 [Left] O2 Sat by Pulse 100 99 Oximetry ED Medical Decision Making - Lab Data Result diagrams: 01/15/21 15:14 01/15/21 15:14 Lab Results 01/15/21 01/15/21 Range/Units 15:14 15:14 WBC 10.8 (4.5-11.0) K/mm3 RBC 4.64 (3.65-5.03) M/mm3 Hgb 12.0 (11.8-15.2) gm/dl Hct 37.2 (35.5-45.6) % MCV 80 L (84-94) fl MCH 26 L (28-32) pg MCHC 32 (32-34) % RDW 17.4 H (13.2-15.2) % Plt Count 199 (140-440) K/mm3 Lymph % (Auto) Host Coordinator Lymph # (Auto) Host Coordinator Add Manual Diff Complete Total Counted 100 Seg Neutrophils % Host Coordinator Seg Neuts % (Manual) 31.0 L (40.0-70.0) % Lymphocytes % (Manual) 61.0 H (13.4-35.0) % Monocytes % (Manual) 8.0 H (0.0-7.3) % Nucleated RBC % Not Reportable Seg Neutrophils # Man 3.3 (1.8-7.7) K/mm3 Band Neutrophils # 0.0 K/mm3 Lymphocytes # (Manual) 6.6 H (1.2-5.4) K/mm3 Abs React Lymphs (Man) 0.0 K/mm3 Monocytes # (Manual) 0.9 H (0.0-0.8) K/mm3 Eosinophils # (Manual) 0.0 (0.0-0.4) K/mm3 Basophils # (Manual) 0.0 (0.0-0.1) K/mm3 Metamyelocytes # 0.0 K/mm3 Myelocytes # 0.0 K/mm3 Promyelocytes # 0.0 K/mm3 Blast Cells # 0.0 K/mm3 WBC Morphology Not Reportable Hypersegmented Neuts Not Reportable Hyposegmented Neuts Not Reportable Hypogranular Neuts Not Reportable Smudge Cells Not Reportable Toxic Granulation Not Reportable Toxic Vacuolation Not Reportable Dohle Bodies Not Reportable Pelger-Huet Anomaly Not Reportable Carla Rods Not Reportable Platelet Estimate Consistent w auto Clumped Platelets Not Reportable Plt Clumps, EDTA Not Reportable Large Platelets Not Reportable Giant Platelets Not Reportable Platelet Satelliting Not Reportable Plt Morphology Comment Not Reportable RBC Morphology Not Reportable Dimorphic RBCs Not Reportable Polychromasia Not Reportable Hypochromasia 1+ Poikilocytosis Not Reportable Anisocytosis Not Reportable Microcytosis Not Reportable Macrocytosis Not Reportable Spherocytes Not Reportable Pappenheimer Bodies Not Reportable Sickle Cells Not Reportable Target Cells Not Reportable Tear Drop Cells Not Reportable Ovalocytes Not Reportable Helmet Cells Not Reportable [place] Bodies Not Reportable Badger Rings Not Reportable Christopher Cells Not Reportable Bite Cells Not Reportable Crenated Cell Not Reportable Elliptocytes Not Reportable Acanthocytes (Spur) Not Reportable Rouleaux Not Reportable Hemoglobin C Crystals Not Reportable Schistocytes Not Reportable Malaria parasites Not Reportable Eleuterio Bodies Not Reportable Hem Pathologist Commnt No Sodium 132 L (137-145) mmol/L Potassium 4.7 (3.6-5.0) mmol/L Chloride 97.3 L (98-107) mmol/L Carbon Dioxide 23 (22-30) mmol/L Anion Gap 16 mmol/L BUN 13 (9-20) mg/dL Creatinine 1.1 (0.8-1.3) mg/dL Estimated GFR > 60 ml/min BUN/Creatinine Ratio 12 % Glucose 86 (75-100) mg/dL Calcium 8.7 (8.4-10.2) mg/dL Total Bilirubin 0.30 (0.1-1.2) mg/dL AST 45 H (5-40) units/L ALT 36 (7-56) units/L Alkaline Phosphatase 76 (35-129) units/L Total Protein 8.4 H (6.3-8.2) g/dL Albumin 4.0 (3.9-5) g/dL Albumin/Globulin Ratio 0.9 % Lipase 7 L (13-60) units/L Vital Signs 01/15/21 01/15/21 13:56 17:45 Temperature 100.9 F H 99.5 F Pulse Rate 100 H 73 Respiratory 14 14 Rate Blood Pressure 100/61 111/63 [Left] O2 Sat by Pulse 100 99 Oximetry - Radiology Data Radiology results: report reviewed Ordering Physician: DIDI RICHARDS Date of Service: 01/15/21 Procedure(s): XR chest routine 2V Accession Number(s): [id number] cc: DIDI RICHARDS Fluoro Time In Minutes: CHEST 2 VIEWS INDICATION / CLINICAL INFORMATION: cough, fever, v/d. COMPARISON: None available. FINDINGS: SUPPORT DEVICES: None. HEART / MEDIASTINUM: No significant abnormality. LUNGS / PLEURA: No significant pulmonary or pleural abnormality. No pneumothorax. ADDITIONAL FINDINGS: No significant additional findings. IMPRESSION: 1. No acute findings. Signer Name: Josie Looney MD Signed: 01/15/2021 3:22 PM Workstation Name: [id number] Transcribed By: DT Dictated By: Bayron Looeny MD Electronically Authenticated By: Bayron Looney MD Signed Date/Time: 01/15/211521 DD/ 20 TD/TT: - Medical Decision Making Patient is a 35-year-old male presents emergency room complaints of possible COV ID-19 that began 3 days ago. He states he was looking up his symptoms and he reports that he has all associated symptoms. He states he has been having nausea, vomiting, diarrhea, mild dry cough, chills, body aches, fever. He denies any shortness of breath, chest pain, urinary symptoms, hematochezia, melena, hematemesis. He denies any past medical history. No allergies to medications. He has not been vaccinated for COVID-19. He denies any known sick contacts or recent travel. Initial vitals with fever and tachycardia which improved upon repeat. No hypoxia. Sounds are clear bilaterally, no wheezing, no rales, no rhonchi. Labs with mild dehydration, encouraged oral intake. Chest x-ray 1. No acute findings. Patient given p.o. medications while in the emergency department with improvement of his symptoms and he was able to tolerate p.o. intake without any difficulty and had no episodes of vomiting while in the ED. Symptoms likely related to URI. Discussed the possibility of COVID-19 with patient, discussed return precautions, discussed self quarantine, discussed outpatient testing. Patient has no hypoxia or signs of Covid pneumonia on his x-ray. Patient given prescription for medication for symptomatic relief. Advised Please take medication as prescribed. Increase y our fluid intake. Follow-up with a primary care doctor. Return to emergency room immediately for any new or worsening symptoms. Recommend outpatient COVID- 19 testing and if positive will need to self quarantine for 10 days from onset of symptoms. Critical care attestation.: If time is entered above; I have spent that time in minutes in the direct care of this critically ill patient, excluding procedure time. ED Disposition Clinical Impression: Upper respiratory infection Qualifiers: URI type: unspecified URI Qualified Code(s): J06.9 - Acute upper respiratory infection, unspecified Disposition: 01 HOME / SELF CARE / HOMELESS Is pt being admited?: No Does the pt Need Aspirin: No Condition: Stable Instructions: Viral Respiratory Infection Additional Instructions: Please take medication as prescribed. Increase your fluid intake. Follow-up with a primary care doctor. Return to emergency room immediately for any new or worsening symptoms. Recommend outpatient COVID-19 testing and if positive will need to self quarantine for 10 days from onset of symptoms. Prescriptions: Hyoscyamine Subl [Levsin Sl 0.125 TAB] 0.125 mg SL Q6HR PRN #8 tab PRN Reason: diarrhea/cramping guaiFENesin ER [Mucinex ER] 600 mg PO Q12H 7 Days #14 tablet.er Benzonatate [Tessalon Perles] 100 mg PO Q8HR PRN #12 capsule PRN Reason: cough Acetaminophen [Tylenol] 650 mg PO Q8HR PRN #20 capsule PRN Reason: fever/pain Ondansetron [Zofran Odt] 4 mg PO Q8HR PRN #8 tab.rapdis PRN Reason: nausea/vomiting Referrals: GALE DAILEY MD [Staff Physician] - 2-3 Days [facility] [Provider Group] - 2-3 Days Forms: Work/School Release Form(ED) Time of Disposition: 16:45 Print Language: SINHALA
[2021-01-15 17:46] VITALS: BP 111/63
== END 2021-01-15 17:46 | disposition home or self-care (01) ==
LOC: ED 13:18
DX: J06.9 Acute upper respiratory infection, unspecified (principal)
CPT/HCPCS: 36415; 71046; 80053; 83690; 85007; 85025; 99283; Q0162

== ENCOUNTER 2021-08-21 12:42 | Emergency (ER) | payer OTHER ==
[2021-08-21 13:49] VITALS: BP 134/69
[2021-08-21 14:30] LABS: Basophils % (Auto) 0.2 % (0.0-1.8); Eosinophils % (Auto) 0.1 % (0.0-4.3); Hematocrit 39.8 % (35.5-45.6); Lymphocytes # (Auto) 2.9 K/mm3 (1.2-5.4); Mean Corpuscular HGB Conc 33 % (32-34); Mean Corpuscular Volume 79 fl (84-94); Monocytes % (Auto) 12.3 % (0.0-7.3); Platelet Count 213 K/mm3 (140-440); Red Blood Count 5.05 M/mm3 (3.65-5.03); Red Cell Distribution Width 15.5 % (13.2-15.2)
[2021-08-21 14:51] LABS: Alanine Aminotransferase 13 units/L (7-56); Albumin 4.2 g/dL (3.9-5); BUN/Creatinine Ratio 9; Blood Urea Nitrogen 8 mg/dL (9-20); Calcium 9.4 mg/dL (8.4-10.2); Hemolysis Index 0
[2021-08-21] MEDS ORDERED: FAMOTIDINE 20 MG/2 ML INJ IV ONE (14:53)
[2021-08-21] MEDS ORDERED: MORPHINE 4 MG/1 ML INJ IV ONE (14:53)
[2021-08-21] MEDS ORDERED: ONDANSETRON 4 MG/2 ML INJ IV ONE (14:53)
[2021-08-21] MEDS ORDERED: SODIUM CHLORIDE 0.9% 1000 ML 1,000 ML IV ONE (14:53)
--- NOTE | 2021-08-21 16:11 | Cat Scan Report ---
CT ABDOMEN AND PELVIS WITH CONTRAST INDICATION / CLINICAL INFORMATION: abdominal pain, Diarrhea. TECHNIQUE: Axial CT images were obtained through the abdomen and pelvis after IV contrast. All CT sc ans at this location are performed using CT dose reduction for ALARA by means of automated exposure c ontrol. COMPARISON: None available. FINDINGS: LOWER CHEST: No significant abnormality. LIVER: No significant abnormality. GALLBLADDER: No significant abnormality. PANCREAS: No significant abnormality. SPLEEN: No significant abnormality. ADRENALS: No significant abnormality. RIGHT KIDNEY / URETER: No significant abnormality. LEFT KIDNEY / URETER: No significant abnormality. STOMACH / SMALL BOWEL: No significant abnormality. COLON: Wall thickening and mucosal enhancement involving the ascending, transverse and proximal desce nding colon with mild pericolonic inflammation. APPENDIX: No significant abnormality. PERITONEUM: Trace amount of free fluid within the pelvis LYMPH NODES: No significant abnormality. AORTA / ARTERIES/ VEINS: No significant abnormality. URINARY BLADDER: No significant abnormality. REPRODUCTIVE ORGANS: No significant abnormality. ADDITIONAL FINDINGS: None. SKELETAL SYSTEM: No significant abnormality. IMPRESSION: 1. Acute colitis as above involving the ascending, transverse and proximal descending colon. Favor i nflammatory or infectious etiology. Signer Name: Abhijeet Perez MD Signed: 08/21/2021 4:06 PM Workstation Name: [id number]
[2021-08-21 16:43] LABS: Mucus,Urine 3+ /HPF
[2021-08-21] MEDS ORDERED: metroNIDAZOLE/NS 500 MG/100 ML 500 MG/100 ML BAG IV ONE (16:46)
[2021-08-21] MEDS ORDERED: levoFLOXacin 500 MG TAB PO ONE (16:46)
[2021-08-21] MEDS ORDERED: dexAMETHasone 20 MG/5 ML VIAL IV ONE (16:47)
[2021-08-21 16:51] LABS: Color,Urine Yellow (Yellow)
[2021-08-21 16:52] LABS: Blood,Urine 1+ (Negative)
[2021-08-21 16:53] LABS: Ictotest,Urine Negative (Negative); Protein,Urine >500 mg/dL (Negative)
--- NOTE | 2021-08-21 18:41 | Emergency Department Report ---
ED Abdominal Pain HPI - General Chief Complaint: Abdominal Pain Stated Complaint: ABD PAIN/BLOOD IN STOOL/DIAHRREA Source: patient Mode of arrival: Ambulatory Limitations: No Limitations - History of Present Illness Initial Comments: Patient is a 35-year-old -Citizen Of [place] male with no past medical history presents to the ED with complaint of acute onset persistent diffuse low abdominal pain with nausea and diarrhea for the last 1 week. Patient states that he has also been having persistent hematochezia with worsening pain in the last 5 days. Patient states that he has not been able to sleep or eat anything because of worsening pain. Patient denies dizziness, syncope, fever, chills, cough, dysuria, urinary frequency and urgency, hematemesis, vomiting, testicular pain, hematuria, low back pain, change in vision, lightheadedness or headache. MD Complaint: abdominal pain, other (Diarrhea, nausea and hematochezia) -: week(s) (1) Location: LLQ, RLQ, suprapubic Migration to: LLQ, RLQ, suprapubic Severity: severe Severity scale (0 -10): 8 Quality: cramping, aching, sharp Consistency: constant Improves With: nothing Worsens With: eating Context: possible food poisoning Associated Symptoms: denies other symptoms, nausea, diarrhea, hematochezia, anorexia. denies: vomiting, fever, chills, constipation, hematemesis, melena - Related Data Previous Rx's Medication Instructions Recorded Last Taken Type Acyclovir [Zovirax Tab] 800 mg PO TID #30 tablet 03/25/18 Unknown Rx Acyclovir [Zovirax] 1 applic TP TID #1 tube 03/25/18 Unknown Rx Ibuprofen [Motrin 800 MG tab] 800 mg PO TID #40 tablet 03/25/18 Unknown Rx Butalb/Acetamin/Caff 50-325-40 2 tab PO Q8HR PRN #30 tablet 10/13/18 Unknown Rx [Fioricet 50-325-40] Ondansetron [Zofran ODT TAB] 8 mg PO Q8HR #20 tab.rapdis 10/13/18 Unknown Rx Cyclobenzaprine [Flexeril] 10 mg PO Q8H PRN #21 tablet 05/21/19 Unknown Rx Naproxen 500 mg PO Q12H PRN #24 tablet 05/21/19 Unknown Rx Doxycycline Hyclate [Doxycycline 100 mg PO Q12HR 10 Days #20 tab 07/25/20 Unknown Rx Hyclate TAB] Acetaminophen/Codeine [Tylenol 1 tab PO Q6H PRN #12 tab 10/21/20 Unknown Rx /Codeine # 3 tab] Clindamycin [Clindamycin CAP] 300 mg PO Q8HR #60 capsule 10/21/20 Unknown Rx Ibuprofen [Motrin] 600 mg PO Q8H PRN #30 tablet 10/21/20 Unknown Rx Sulfamethoxazole/Trimethoprim 1 each PO Q12H #20 tablet 10/21/20 Unknown Rx [Bactrim DS TAB] Clindamycin [Clindamycin CAP] 450 mg PO TID 7 Days #63 capsule 12/05/20 Unknown Rx HYDROcodone/APAP 5-325 [[place] 1 each PO Q6HR PRN #12 tablet 12/05/20 Unknown Rx 5/325] Naproxen 375 mg PO BID PRN #14 tablet 12/05/20 Unknown Rx Acetaminophen [Tylenol] 650 mg PO Q8HR PRN #20 capsule 01/15/21 Unknown Rx Benzonatate [Tessalon Perles] 100 mg PO Q8HR PRN #12 capsule 01/15/21 Unknown Rx Hyoscyamine Subl [Levsin Sl 0.125 0.125 mg SL Q6HR PRN #8 tab 01/15/21 Unknown Rx TAB] guaiFENesin ER [Mucinex ER] 600 mg PO Q12H 7 Days #14 tablet.er 01/15/21 Unknown Rx Ciprofloxacin HCl 500 mg PO Q12H #20 tab 08/21/21 Unknown Rx Dicyclomine [Bentyl] 20 mg PO QID PRN #30 tablet 08/21/21 Unknown Rx Mesalamine 800 mg PO Q8H #90 tab 08/21/21 Unknown Rx Ondansetron [Zofran ODT TAB] 4 mg PO Q8HR PRN #20 tab.rapdis 08/21/21 Unknown Rx Pantoprazole [Protonix TAB] 40 mg PO QDAY #60 tablet 08/21/21 Unknown Rx metroNIDAZOLE [Flagyl TAB] 500 mg PO Q8HR #30 tablet 08/21/21 Unknown Rx Allergies Allergy/AdvReac Type Severity Reaction Status Date / Time No Known Allergies Allergy Verified 01/15/21 13:58 ED Review of Systems ROS: Stated complaint: ABD PAIN/BLOOD IN STOOL/DIAHRREA Other details as noted in HPI Constitutional: denies: chills, fever Eyes: denies: eye pain, eye discharge, vision change ENT: denies: ear pain, throat pain Respiratory: denies: cough, shortness of breath, wheezing Cardiovascular: denies: chest pain, palpitations Endocrine: no symptoms reported Gastrointestinal: abdominal pain, nausea, diarrhea, hematochezia. denies: vomiting Genitourinary: denies: urgency, dysuria Musculoskeletal: denies: back pain, joint swelling, arthralgia Skin: denies: rash, lesions Neurological: denies: headache, weakness, paresthesias Psychiatric: denies: anxiety, depression Hematological/Lymphatic: denies: easy bleeding, easy bruising ED Past Medical Hx - Past Medical History Previous Medical History?: No Additional medical history: Cerebral aneurysm - Surgical History Past Surgical History?: No - Social History Smoking Status: Never Smoker - Medications Home Medications: Home Medications Medication Instructions Recorded Confirmed Last Taken Type Acyclovir [Zovirax Tab] 800 mg PO TID #30 tablet 03/25/18 Unknown Rx Acyclovir [Zovirax] 1 applic TP TID #1 tube 03/25/18 Unknown Rx Ibuprofen [Motrin 800 MG tab] 800 mg PO TID #40 tablet 03/25/18 Unknown Rx Butalb/Acetamin/Caff 50-325-40 2 tab PO Q8HR PRN #30 tablet 10/13/18 Unknown Rx [Fioricet 50-325-40] Ondansetron [Zofran ODT TAB] 8 mg PO Q8HR #20 tab.rapdis 10/13/18 Unknown Rx Cyclobenzaprine [Flexeril] 10 mg PO Q8H PRN #21 tablet 05/21/19 Unknown Rx Naproxen 500 mg PO Q12H PRN #24 tablet 05/21/19 Unknown Rx Doxycycline Hyclate [Doxycycline 100 mg PO Q12HR 10 Days #20 tab 07/25/20 Unknown Rx Hyclate TAB] Acetaminophen/Codeine [Tylenol 1 tab PO Q6H PRN #12 tab 10/21/20 Unknown Rx /Codeine # 3 tab] Clindamycin [Clindamycin CAP] 300 mg PO Q8HR #60 capsule 10/21/20 Unknown Rx Ibuprofen [Motrin] 600 mg PO Q8H PRN #30 tablet 10/21/20 Unknown Rx Sulfamethoxazole/Trimethoprim 1 each PO Q12H #20 tablet 10/21/20 Unknown Rx [Bactrim DS TAB] Clindamycin [Clindamycin CAP] 450 mg PO TID 7 Days #63 capsule 12/05/20 Unknown Rx HYDROcodone/APAP 5-325 [[place] 1 each PO Q6HR PRN #12 tablet 12/05/20 Unknown Rx 5/325] Naproxen 375 mg PO BID PRN #14 tablet 12/05/20 Unknown Rx Acetaminophen [Tylenol] 650 mg PO Q8HR PRN #20 capsule 01/15/21 Unknown Rx Benzonatate [Tessalon Perles] 100 mg PO Q8HR PRN #12 capsule 01/15/21 Unknown Rx Hyoscyamine Subl [Levsin Sl 0.125 0.125 mg SL Q6HR PRN #8 tab 01/15/21 Unknown Rx TAB] guaiFENesin ER [Mucinex ER] 600 mg PO Q12H 7 Days #14 tablet.er 01/15/21 Unknown Rx Ciprofloxacin HCl 500 mg PO Q12H #20 tab 08/21/21 Unknown Rx Dicyclomine [Bentyl] 20 mg PO QID PRN #30 tablet 08/21/21 Unknown Rx Mesalamine 800 mg PO Q8H #90 tab 08/21/21 Unknown Rx Ondansetron [Zofran ODT TAB] 4 mg PO Q8HR PRN #20 tab.rapdis 08/21/21 Unknown Rx Pantoprazole [Protonix TAB] 40 mg PO QDAY #60 tablet 08/21/21 Unknown Rx metroNIDAZOLE [Flagyl TAB] 500 mg PO Q8HR #30 tablet 08/21/21 Unknown Rx ED Physical Exam - General Limitations: No Limitations General appearance: alert, in no apparent distress - Head Head exam: Present: atraumatic, normocephalic, normal inspection - Eye Eye exam: Present: normal appearance, PERRL, EOMI Pupils: Present: normal accommodation - ENT ENT exam: Present: normal exam, normal orophraynx, mucous membranes moist, TM's normal bilaterally, normal external ear exam - Neck Neck exam: Present: normal inspection, full ROM. Absent: tenderness - Respiratory Respiratory exam: Present: normal lung sounds bilaterally. Absent: respiratory distress, wheezes, rales, rhonchi, chest wall tenderness, accessory muscle use, decreased breath sounds, prolonged expiratory - Cardiovascular Cardiovascular Exam: Present: regular rate, normal rhythm, normal heart sounds. Absent: systolic murmur, diastolic murmur, rubs, gallop - GI/Abdominal GI/Abdominal exam: Present: soft, tenderness (Palpable diffuse lower abdominal tenderness with guarding), guarding, normal bowel sounds. Absent: rebound, rigid, hyperactive bowel sounds, hypoactive bowel sounds, organomegaly, mass, bruit, hernia - Extremities Exam Extremities exam: Present: normal inspection, full ROM, normal capillary refill. Absent: tenderness, pedal edema, joint swelling, calf tenderness - Back Exam Back exam: Present: normal inspection, full ROM. Absent: tenderness, CVA tenderness (R), CVA tenderness (L), muscle spasm, paraspinal tenderness, vertebral tenderness - Neurological Exam Neurological exam: Present: alert, oriented X3, CN II-XII intact, normal gait, reflexes normal - Psychiatric Psychiatric exam: Present: normal affect, normal mood, anxious - Skin Skin exam: Present: warm, dry, intact, normal color. Absent: rash ED Course Vital Signs 08/21/21 13:47 Temperature 98.9 F Pulse Rate 67 Respiratory 18 Rate Blood Pressure 134/69 O2 Sat by Pulse 99 Oximetry ED Medical Decision Making - Lab Data Result diagrams: 08/21/21 14:05 08/21/21 14:05 - Radiology Data Radiology results: report reviewed, [place] [address] Cat Scan Report Signed Patient: DIOGENES BUTT MR#: [id number] : 1985 Acct:[id number] Age/Sex: 35 / M ADM Date: 08/21/21 Loc: ED Attending Dr: Ordering Physician: DIDI MAYNARD Date of Service: 08/21/21 Procedure(s): CT abdomen pelvis w con Accession Number(s): [id number] cc: DIDI MAYNARD CT ABDOMEN AND PELVIS WITH CONTRAST INDICATION / CLINICAL INFORMATION: abdominal pain, Diarrhea. TECHNIQUE: Axial CT images were obtained through the abdomen and pelvis after IV contrast. All CT scans at this location are performed using CT dose reduction for ALARA by means of automated exposure control. COMPARISON: None available. FINDINGS: LOWER CHEST: No significant abnormality. LIVER: No significant abnormality. GALLBLADDER: No significant abnormality. PANCREAS: No significant abnormality. SPLEEN: No significant abnormality. ADRENALS: No significant abnormality. RIGHT KIDNEY / URETER: No significant abnormality. LEFT KIDNEY / URETER: No significant abnormality. STOMACH / SMALL BOWEL: No significant abnormality. COLON: Wall thickening and mucosal enhancement involving the ascending, transverse and proximal descending colon with mild pericolonic inflammation. APPENDIX: No significant abnormality. PERITONEUM: Trace amount of free fluid within the pelvis LYMPH NODES: No significant abnormality. AORTA / ARTERIES/ VEINS: No significant abnormality. URINARY BLADDER: No significant abnormality. REPRODUCTIVE ORGANS: No significant abnormality. ADDITIONAL FINDINGS: None. SKELETAL SYSTEM: No significant abnormality. IMPRESSION: 1. Acute colitis as above involving the ascending, transverse and proximal descending colon. Favor inflammatory or infectious etiology. Signer Name: Abhijeet Perez MD Signed: 08/21/2021 4:06 PM Workstation Name: [id number] Transcribed By: SB Dictated By: ABHIJEET PEREZ MD Electronically Authenticated By: ABHIJEET PEREZ MD Signed Date/Time: 08/21/211605 DD/ 02 TD/TT: - Medical Decision Making This is a 35-year-old -Citizen Of [place] male with no past medical history presents to the ED with complaint of acute onset persistent diffuse low abdominal pain with nausea and diarrhea for the last 1 week. Patient states that he has also been having persistent hematochezia with worsening pain in the last 5 days. Patient states that he has not been able to sleep or eat anything because of worsening pain. In the ED, patient is alert and oriented x3 and is not in any distress. Patient however appears to be in significant pain. Patient is hemodynamically stable. Lab test results were reviewed and are all nonactionable except for urinalysis that showed significant urinary tract infection. Abdomen pelvis CT scan with IV contrast showed showed acute colitis as involving the ascending, transverse and proximal descending colon. Favor inflammatory or infectious etiology. Patient was treated for pain in the ED, nausea and also given normal saline 1 L IV bolus x1. Patient also received Levaquin 500 mg p.o. x1 and Flagyl 500 mg IV x1 in the ED. On reevaluation, patient's pain is well controlled with medication. Patient is hemodynamically stable. Patient was discharged home on medications and advised to follow-up with the GI physician Dr. Estuardo Durbin in 2 to 3 days for reevaluation. Patient was advised to return to the ED immediately if symptoms get worse. - Differential Diagnosis Appendicitis; Crohn's disease; ulcerative colitis; UTI; kidney stones Critical care attestation.: If time is entered above; I have spent that time in minutes in the direct care of this critically ill patient, excluding procedure time. ED Disposition Clinical Impression: Abdominal pain, bilateral lower quadrant, Acute hemorrhagic colitis, Hematochezia, Acute urinary tract infection Disposition: HOME / SELF CARE / HOMELESS Is pt being admited?: No Does the pt Need Aspirin: No Condition: Stable Instructions: Abdominal Pain, Adult, [id number], Gastrointestinal Bleeding, [id number], Colitis, Diarrhea, Adult, [id number], Bloody Diarrhea, Urinary Tract Infection, Adult, [id number] Additional Instructions: All lab test results were reviewed and are all nonactionable except for urinalysis that showed significant urinary tract infection. Abdomen pelvis CT scan with IV contrast showed acute colitis as above involving the ascending, transverse and proximal descending colon. Favor inflammatory or infectious etiology. Therefore take medication as advised, drink plenty of fluids, follow- up with your primary care physician in 3 to 5 days for reevaluation. Consider following up with the GI physician on-call Dr. Estuardo Durbin for further evaluation and follow-up in 3 to 5 days. Contact his office first thing in the morning on August to schedule a follow-up appointment. Return to the ED immediately if symptoms get worse. Prescriptions: Dicyclomine [Bentyl] 20 mg PO QID PRN #30 tablet PRN Reason: abdominal pain Ciprofloxacin HCl 500 mg PO Q12H #20 tab metroNIDAZOLE [Flagyl TAB] 500 mg PO Q8HR #30 tablet Mesalamine 800 mg PO Q8H #90 tab Pantoprazole [Protonix TAB] 40 mg PO QDAY #60 tablet Ondansetron [Zofran ODT TAB] 4 mg PO Q8HR PRN #20 tab.rapdis PRN Reason: nausea/vomiting Referrals: GALE DAILEY MD [Primary Care Provider] - 3-5 Days ESTUARDO DURBIN MD [Staff Physician] - 3-5 Days Forms: Work/School Release Form(ED) Time of Disposition: 18:46 Print Language: RWANDAN
== END 2021-08-21 19:28 | disposition home or self-care (01) ==
LOC: ED 12:42
DX: N39.0 Urinary tract infection, site not specified (principal); K52.89 Other specified noninfective gastroenteritis and colitis; K92.1 Melena; R10.31 Right lower quadrant pain; R10.32 Left lower quadrant pain
CPT/HCPCS: 36415; 74177; 80053; 81001; 85025; 87086; 96361; 96365; 96366; 96375; 99284; J1100; J2270; J2405; J3490; J7030; J7517; Q9967